=== PATIENT | male | born 1955 | race Caucasian/White ===

== ENCOUNTER 2017-08-08 03:25 | Inpatient (IN) | payer OTHER ==
[2017-08-08] VITALS (13 sets, daily range): BP systolic 138–207; BP diastolic 72–100; PULSE 58–95; RESP 16–19; TEMP 97.8–98.8; O2SAT 97–100
[~2017-08-08] VITALS: Ht 190.5 cm; Wt 106.5 kg
[~2017-08-08 03:25] MED LIST: AMLO10TA2 PO; ASPI81TA23 PO; ATOR80TA45 PO; CLOP75TA PO; ISOS30TA3 PO; LISI20TA3 PO; METO100T PO; MULTTAB67 PO; NITR1SUB3 SL
--- NOTE | 2017-08-08 04:21 | PD ---
HPI Chief Complaint: Chest Pain Time Seen by Provider: 03:37 Travel History International Travel<30 days: No Contact w/Intl Traveler<30days: No Traveled to known affect area: No History of Present Illness HPI Patient is a 61-year-old male with a catheterization 4 days ago, which showed major vessel disease which was too high up on the left main to be done. He is scheduled for cardiothoracic CABG. He reports the cardiothoracic surgeon is Dr. Magda Mosqueda. His keno writer / runner is Dr. LINDSAY . PCP Nanci... Laying in bed tonight prior to going to sleep he felt left chest pain lasted about 10 minutes and radiates towards his left arm area. Pain was dull achy. He did not take any nitroglycerin he takes isosorbide 30 mg and he has nitroglycerin sublingual but he did not take it he was told if pain returns and continues he should take the nitroglycerin he thought it did not last long enough to take the nitroglycerin it went away and then when his insisted he comes to the ER he stated started up again. He is pain-free currently in [facility] Past Medical History Cancer: No Cardiovascular Problems: Yes (UNSTABLE ANGINA, CAD, HTN) Chest Pain: No Coronary Artery Disease: Yes Diabetes: No Gastrointestinal Disorders: No Glaucoma: No Hepatitis: No Hiatal Hernia: No Hypertension: Yes Respiratory: Yes (SOB) Integumentary: No Thyroid Disease: No Past Surgical History Ear Surgery: Yes Other Surgery: Yes (DBL MAST) Social History Alcohol Use: No Tobacco Use: No Substance Use: No Allergies-Medications (Allergen,Severity, Reaction): Coded Allergies: Penicillins (Verified Allergy, Severe, 08/08/17) Sulfa (Sulfonamide Antibiotics) (Verified Allergy, Severe, 08/08/17) Reported Meds & Prescriptions Reported Meds & Active Scripts Active Reported Aspirin EC (Aspirin) 81 Mg Tabdr 81 Mg PO DAILY Clopidogrel (Clopidogrel Bisulfate) 75 Mg Tab 75 Mg PO DAILY Multiple Vitamin 1 Tab 1 Tab PO DAILY Nitroglycerin SL (Nitroglycerin) 0.4 Mg Subl 0.4 Mg SL DIRECTED PRN ONE TABLET UNDER THE TONGUE NEEDED FOR CHEST PAIN, MAY REPEAT EVERY FIVE MINUTES FOR A TOTAL OF 3 DOSES OR CALL 911 IF NO RELIEF Isosorbide Mononitrate ER (Isosorbide Mononitrate) 30 Mg [place] 30 Mg PO DAILY Atorvastatin (Atorvastatin Calcium) 80 Mg Tab 80 Mg PO HS Amlodipine (Amlodipine Besylate) 10 Mg Tab 10 Mg PO DAILY Metoprolol Tartrate 100 Mg Tab 100 Mg PO DAILY Lisinopril-Hctz 20-25 Mg Tab 1 Tab PO DAILY Review of Systems Except as stated in HPI: all other systems reviewed are Neg Cardiovascular: Positive: Chest Pain or Discomfort Physical Exam Narrative GENERAL: Nontoxic-appearing in no distress . He is not pale he is not diaphoretic SKIN: Focused skin assessment warm/dry. HEAD: Atraumatic. Normocephalic. EYES: Pupils equal and round. No scleral icterus. No injection or drainage. ENT: No nasal bleeding or discharge. Mucous membranes pink and moist. NECK: Trachea midline. No JVD. CARDIOVASCULAR: Regular rate and rhythm. No murmur appreciated. RESPIRATORY: No accessory muscle use. Clear to auscultation. Breath sounds equal bilaterally. GASTROINTESTINAL: Abdomen soft, non-tender, nondistended. Hepatic and splenic margins not palpable. MUSCULOSKELETAL: No obvious deformities. No clubbing. No cyanosis. No edema. NEUROLOGICAL: Awake and alert. No obvious cranial nerve deficits. Motor grossly within normal limits. Normal speech. PSYCHIATRIC: Appropriate mood and affect; insight and judgment normal. Data Data Last Documented VS Vital Signs Date Time Temp Pulse Resp B/P (MAP) Pulse Ox O2 Delivery O2 Flow Rate FiO2 08/08/17 04:15 Room Air 08/08/17 03:25 98.8 95 16 207/100 (135) 97 Orders Orders Complete Blood Count With Diff (08/08/17 03:55) Comprehensive Metabolic Panel (08/08/17 03:55) Ckmb (Isoenzyme) Profile (08/08/17 03:55) Troponin I (08/08/17 03:55) Magnesium (Mg) (08/08/17 03:55) Phosphorus (Po4) (08/08/17 03:55) Electrocardiogram (08/08/17 ) CKMB (08/08/17 04:16) CKMB% (08/08/17 04:16) Admit Order (Ed Use Only) (08/08/17 06:24) Nitroglycerin 2% Oint (Nitroglycerin 2% (08/08/17 06:30) Labs Laboratory Tests Test 08/08/17 04:16 White Blood Count 7.1 TH/MM3 Red Blood Count 4.36 MIL/MM3 Hemoglobin 13.3 GM/DL Hematocrit 36.5 % Mean Corpuscular Volume 83.8 FL Mean Corpuscular Hemoglobin 30.5 PG Mean Corpuscular Hemoglobin Concent 36.4 % Red Cell Distribution Width 13.4 % Platelet Count 176 TH/MM3 Mean Platelet Volume 9.9 FL Neutrophils (%) (Auto) 72.3 % Lymphocytes (%) (Auto) 17.7 % Monocytes (%) (Auto) 6.7 % Eosinophils (%) (Auto) 2.5 % Basophils (%) (Auto) 0.8 % Neutrophils # (Auto) 5.2 TH/MM3 Lymphocytes # (Auto) 1.3 TH/MM3 Monocytes # (Auto) 0.5 TH/MM3 Eosinophils # (Auto) 0.2 TH/MM3 Basophils # (Auto) 0.1 TH/MM3 CBC Comment AUTO DIFF Differential Comment AUTO DIFF CONFIRMED Platelet Estimate NORMAL Platelet Morphology Comment NORMAL Blood Urea Nitrogen 21 MG/DL Creatinine 1.58 MG/DL Random Glucose 208 MG/DL Total Protein 7.6 GM/DL Albumin 3.8 GM/DL Calcium Level 8.0 MG/DL Phosphorus Level 2.5 MG/DL Magnesium Level 2.2 MG/DL Alkaline Phosphatase 84 U/L Aspartate Amino Transf (AST/SGOT) 39 U/L Alanine Aminotransferase (ALT/SGPT) 52 U/L Total Bilirubin 0.4 MG/DL Sodium Level 140 MEQ/L Potassium Level 3.7 MEQ/L Chloride Level 105 MEQ/L Carbon Dioxide Level 25.4 MEQ/L Anion Gap 10 MEQ/L Estimat Glomerular Filtration Rate 45 ML/MIN Total Creatine Kinase 129 U/L Creatine Kinase MB 1.3 NG/ML Troponin I LESS THAN 0.02 NG/ML MDM Medical Decision Making Medical Screen Exam Complete: Yes Emergency Medical Condition: Yes Differential Diagnosis CAD, with ischemic CP vs GERD vs Anxiety vs vessel plaque rupture, Narrative Course Pt has normal EKG and Trop that is normal and has remained pain free in ED since arrival , I place nitro paste on patient and admit to Tele for close monitoring , I do not give ASA as pt has been taking 81 mg and is to have open heart CT surgery this week... Pt is stable for tele admit..Hospitailist group will contact CT surgery in AM Diagnosis Primary Impression: Chest pain Brandon Ruiz MD Aug 08, 2017 04:21
[2017-08-08 04:28] LABS: AUTOMATED NEUTROPHIL # 5.2 TH/MM3 (1.8-7.7); BASOPHIL # 0.1 TH/MM3 (0-0.2); BASOPHIL % 0.8 % (0.0-2.0); EOSINOPHIL # 0.2 TH/MM3 (0-0.4); EOSINOPHIL % 2.5 % (0.0-4.0); HEMATOCRIT 36.5 % (39.0-51.0); LYMPH % 17.7 % (9.0-44.0); LYMPHOCYTE # 1.3 TH/MM3 (1.0-4.8); MEAN CELL VOLUME 83.8 FL (80.0-100.0); MEAN CORPUSCULAR HEMOGLOBIN 30.5 PG (27.0-34.0); MONO % 6.7 % (0.0-8.0); NEUT % 72.3 % (16.0-70.0); PLATELET COUNT 176 TH/MM3 (150-450); RED BLOOD COUNT 4.36 MIL/MM3 (4.50-5.90); RED CELL DISTRIBUTION WIDTH 13.4 % (11.6-17.2); WHITE BLOOD COUNT 7.1 TH/MM3 (4.0-11.0)
[2017-08-08 04:56] LABS: HEMO FLAGS AUTO DIFF; MEAN CORPUSCULAR HGB CONC 36.4 % (32.0-36.0)
[2017-08-08 05:07] LABS: ALKALINE PHOSPHATASE 84 U/L (45-117); ALT (GPT) 52 U/L (12-78); ANION GAP 10 MEQ/L (5-15); AST (GOT) 39 U/L (15-37); BICARBONATE 25.4 MEQ/L (21.0-32.0); BLOOD UREA NITROGEN 21 MG/DL (7-18); CHLORIDE 105 MEQ/L (98-107); CREATINE KINASE 129 U/L (39-308); GLOMERULAR FILTRATION RATE 45 ML/MIN (>89); MAGNESIUM 2.2 MG/DL (1.5-2.5); SODIUM (NA) 140 MEQ/L (136-145); TOTAL BILIRUBIN ADULT 0.4 MG/DL (0.2-1.0)
[2017-08-08 05:08] LABS: POTASSIUM 3.7 MEQ/L (3.5-5.1)
[2017-08-08 05:21] LABS: CKMB 1.3 NG/ML (0.5-3.6)
[2017-08-08] MEDS ORDERED: MAGNESIUM HYDROXIDE SUSP 30 ML CUP PO PRN (06:30)
[2017-08-08] MEDS ORDERED: NITROGLYCERIN 2% OINT 1 GM PACKET TOPICAL ONE (06:30)
[2017-08-08] MEDS ORDERED: BISACODYL 10 MG SUPP RECTAL PRN (06:30)
[2017-08-08] MEDS ORDERED: ACETAMINOPHEN 325 MG TAB PO PRN (06:30)
[2017-08-08] MEDS ORDERED: LACTULOSE SYRUP 20 GM/30 ML CUP PO PRN (06:30)
[2017-08-08] MEDS ORDERED: ONDANSETRON HCL 4 MG/2 ML VIAL IVP PRN (06:30)
[2017-08-08] MEDS ORDERED: SODIUM CHLORIDE 0.9% FLUSH 10 ML FLUSH IV FLUSH PRN (06:30)
[2017-08-08] MEDS ORDERED: SENNOSIDES 8.6 MG TAB PO PRN (06:30)
[2017-08-08] MEDS ORDERED: ACETAMINOPHEN/HYDROcodone 325 MG/5 MG TAB PO PRN (06:30)
[2017-08-08 06:46] LABS: PLATELET ESTIMATE SMEAR NORMAL (NORMAL); PLATELET MORPHOLOGY NORMAL (NORMAL); SCAN/DIFF AUTO DIFF CONFIRMED
[2017-08-08] MEDS: HEPARIN SODIUM - IV 10,000 UNITS/10 ML VIAL IV PUSH ONE ×2 (08:45→11:18)
[2017-08-08] MEDS: SODIUM CHLOR 0.45% 500 ML INJ 500 ML IV SCH ×3 (08:45→22:05)
[2017-08-08] MEDS: SODIUM CHLORIDE 0.9% FLUSH 10 ML FLUSH IV FLUSH SCH ×2 (09:00→21:40)
[2017-08-08] MEDS ORDERED: LISINOPRIL 20 MG TAB PO SCH (09:00)
[2017-08-08] MEDS ORDERED: DOCUSATE SODIUM 50 MG/SENNA 8.6 MG TAB PO SCH (09:00)
[2017-08-08] MEDS ORDERED: HYDROCHLOROTHIAZIDE 25 MG TAB PO SCH (09:00)
[2017-08-08] MEDS ORDERED: NON-FORMULARY DRUG (Lisinopril-Hctz 1 TAB) PO SCH (09:00)
[2017-08-08 09:39] LABS: HEMATOCRIT 37.5 % (39.0-51.0); MEAN CELL VOLUME 84.6 FL (80.0-100.0); MEAN CORPUSCULAR HEMOGLOBIN 29.4 PG (27.0-34.0); MEAN CORPUSCULAR HGB CONC 34.8 % (32.0-36.0); PLATELET COUNT 151 TH/MM3 (150-450); RED BLOOD COUNT 4.43 MIL/MM3 (4.50-5.90); RED CELL DISTRIBUTION WIDTH 12.9 % (11.6-17.2); REVIEW FLAG FINAL; WHITE BLOOD COUNT 6.3 TH/MM3 (4.0-11.0)
[2017-08-08 09:49] LABS: APTT (PATIENT) 26.6 SEC (24.3-30.1); PROTHROMBIN TIME - PATIENT 10.8 SEC (9.8-11.6)
[2017-08-08] MEDS: METOPROLOL TARTRATE 100 MG TAB PO SCH (10:13)
[2017-08-08] MEDS: MULTIVITAMIN TAB PO SCH (10:15)
[2017-08-08] MEDS: ISOSORBIDE MONONITRATE 30 MG TAB PO SCH (10:15)
--- NOTE | 2017-08-08 10:36 | MB ---
cc: TYLER LINDSAY,EVONNE Melgar M.D. DATE OF CONSULTATION: 08/08/2017 REASON FOR CONSULTATION Chest pain. HISTORY Mr. Pastor is a 61-year-old white gentleman, a patient of Dr. Lindsay, with known severe three-vessel coronary artery disease. He had recently had an abnormal stress test and underwent cardiac catheterization on August 08 revealing severe three-vessel coronary disease and he was referred for bypass surgery revascularization to Dr. Diaz. Because of being on clopidogrel, the patient was going to be brought in this upcoming week on Thursday for elective surgery. [place] and began to get short of breath but had no chest pain. He said he could not sleep well last night and then began having some left upper chest discomfort that lasted about 10 minutes radiating to his left shoulder and arm. It was dull and achy. He did not take any sublingual nitroglycerin since he did not feel it was bad enough. He did come to the emergency room for evaluation. His initial cardiac enzymes were negative. He is currently asymptomatic lying in bed. His initial EKG was unremarkable. PAST HISTORY 1. Coronary artery disease. 2. Hypertension. Denies diabetes, myocardial infarction, stroke, thyroid, liver or kidney disease. PAST SURGICAL HISTORY 1. Ear surgery. 2. Cardiac catheterization recently as mentioned. SOCIAL HISTORY The patient denies tobacco, alcohol or illicit drug use. 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 ALLERGIES PENICILLIN AND SULFA DRUGS. MEDICATIONS 1. Aspirin 81 mg daily. 2. He was on clopidogrel up until the and that has been discontinued. 3. Sublingual nitroglycerin p.r.n. 4. Isosorbide mononitrate 30 mg daily. 5. Atorvastatin 80 mg h.s. 6. Amlodipine 10 mg daily. 7. Metoprolol tartrate 100 mg daily. 8. He also had been on Lisinopril/Hydrochlorothiazide, but that has also been held since his catheterization. FAMILY HISTORY Noncontributory. REVIEW OF SYSTEMS Denies lower extremity edema or claudication. Denies any bleeding or clotting disorders. Except for that mentioned in the HPI, his complete 12-point review of systems is otherwise negative. PHYSICAL EXAMINATION GENERAL: Middle-aged, overweight, white male lying in bed in no distress at this time. VITAL SIGNS: Blood pressure 140/77 mmHg, heart rate is 88 regular, respiratory rate 18, temperature 98.8, oxygen saturations 100% on room air. HEAD, EYES, EARS, NOSE AND THROAT: Head is normocephalic and atraumatic. Pupils equal, round and reactive to light. Sclerae anicteric. Extraocular movements intact. NECK: The neck is supple. There is no adenopathy. No jugular venous distension at 45 degrees. Carotid upstrokes normal. No bruits. Thyroid exam normal. LUNGS: Lungs are clear. HEART: PMI is not displaced. S1, S2 normal. No murmurs, gallops, clicks or rubs. ABDOMEN: Protuberant. Bowel sounds present, soft, nontender. No hepatosplenomegaly, masses or bruits. EXTREMITIES: No cyanosis, clubbing or edema. Pulses are +3 to 4 bilaterally throughout the lower extremities. There are no femoral bruits. EKG from 03:46 this morning shows sinus rhythm with occasional premature supraventricular complexes. LVH voltage. Abnormal EKG. Compared to previous EKG there is probably no change, heart rate is increased. LABORATORY DATA CBC normal. Electrolytes normal. BUN 21, creatinine 1.58, magnesium 2.2, AST 39. Troponin I less than 0.02 with a total CPK of 129, a CPK-MB of 1.3. IMAGING Chest x-ray: No acute cardiopulmonary disease. IMPRESSION 1. Severe three-vessel coronary atherosclerosis, awaiting coronary artery bypass graft revascularization. 2. Angina pectoris functional class III. 3. Rule out ACS. 4. Hypertensive heart disease, currently well-controlled. 5. Obesity. 6. Azotemia. RECOMMENDATIONS The patient has already been started on some intravenous fluids, and his home medications restarted. I will discontinue his lisinopril/hydrochlorothiazide for now due to his renal insufficiency and see if that improves. We will continue topical nitrates and begin heparin infusion. Dr. Diaz will be consulted. I will follow him with you over the weekend until Dr. Lindsay returns on Thursday. Thank you for allowing us to participate in the care of this patient. MD DELL García/MARGARITA /8:31 AM 10:15 AM
[2017-08-08] MEDS: HEPARIN-D5W 25,000 U/250 ML 250 ML IV PRN (10:45)
--- NOTE | 2017-08-08 12:32 | EKG ---
Date Performed: 08/08/2017 Time Performed: 03:46:39 PTAGE: 61 years EKG: Sinus rhythm WITH OCCASIONAL SUPRAVENTRICULAR PREMATURE COMPLEXES MODERATE VOLTAGE CRITERIA FOR LVH, CONSIDER NOR MAL VARIANT BORDERLINE ECG Since PREVIOUS TRACING , no significant change noted PREVIOUS TRACIN08/03/2017 11.16 DOCTOR: Ion Crain Interpretating Date/Time 08/08/2017 12:31:55
--- NOTE | 2017-08-08 12:58 | HHI.HP ---
[facility] Rain Joseph M.D. Admission Diagnosis chest pain know cad Diagnoses: (1) Multi-vessel coronary artery stenosis (2) Hypertension (3) Hyperlipidemia (4) Chest pain Chief Complaint: Chest pain Travel History International Travel<30 Days: No Contact w/Intl Traveler <30 Da: No Traveled to Known Affected Are: No History of Present Illness 61-year-old man recently diagnosed with severe multivessel CAD and one has been scheduled for CABG 08/12/17, came to the ED today for ongoing complaint of chest pain which started last night and rated over 7 in intensity with radiation to his left upper extremity and not relieved with aspirin as patient did not take any sublingual nitroglycerin. Patient has a recent diagnosis of three-vessel disease 08/03/17 on the finding of left heart catheterization with LAD 95% ostial lesion, RCA 80% and Circumflex 90%. He has been off Plavix. Patient denies any GI bleed, hemoptysis, hematuria. He has no shortness of breath. His initial cardiac enzyme were negative and EKG unremarkable. Review of Systems Except as stated in HPI: all other systems reviewed are Neg Past Family Social History Past Medical History Hypertension Hyperlipidemia CAD Severe multivessel disease Obesity Past Surgical History Double mastectomies for her large breasts as a teenager Multiple ear surgeries Reported Medications Aspirin EC (Aspirin) 81 Mg Tabdr 81 Mg PO DAILY Clopidogrel (Clopidogrel Bisulfate) 75 Mg Tab 75 Mg PO DAILY Multiple Vitamin 1 Tab 1 Tab PO DAILY Nitroglycerin SL (Nitroglycerin) 0.4 Mg Subl 0.4 Mg SL DIRECTED PRN ONE TABLET UNDER THE TONGUE NEEDED FOR CHEST PAIN, MAY REPEAT EVERY FIVE MINUTES FOR A TOTAL OF 3 DOSES OR CALL 911 IF NO RELIEF Isosorbide Mononitrate ER (Isosorbide Mononitrate) 30 Mg [place] 30 Mg PO DAILY Atorvastatin (Atorvastatin Calcium) 80 Mg Tab 80 Mg PO HS Amlodipine (Amlodipine Besylate) 10 Mg Tab 10 Mg PO DAILY Metoprolol Tartrate 100 Mg Tab 100 Mg PO DAILY Lisinopril-Hctz 20-25 Mg Tab 1 Tab PO DAILY Allergies: Coded Allergies: Penicillins (Verified Allergy, Severe, 08/08/17) Sulfa (Sulfonamide Antibiotics) (Verified Allergy, Severe, 08/08/17) Family History + for IA, CAD, hypertension Social History 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 SKIN: No rashes, ecchymoses or lesions. Cool and dry. HEAD: Atraumatic. Normocephalic. No temporal or scalp tenderness. EYES: Pupils equal round and reactive. Extraocular motions intact. No scleral icterus. No injection or drainage. ENT: Nose without bleeding, purulent drainage or septal hematoma. Throat without erythema, tonsillar hypertrophy or exudate. Uvula midline. Airway patent. NECK: Trachea midline. No JVD or lymphadenopathy. Supple, nontender, no meningeal signs. CARDIOVASCULAR: Regular rate and rhythm without murmurs, gallops, or rubs. RESPIRATORY: Clear to auscultation. Breath sounds equal bilaterally. No wheezes , rales, or rhonchi. GASTROINTESTINAL: Abdomen soft, non-tender, nondistended. No hepato-splenomegaly , or palpable masses. No guarding. MUSCULOSKELETAL: Extremities without clubbing, cyanosis, or edema. No joint tenderness, effusion, or edema noted. No calf tenderness. Negative Homans sign bilaterally. NEUROLOGICAL: Awake and alert. Cranial nerves II through XII intact. Motor and sensory grossly within normal limits. Five out of 5 muscle strength in all muscle groups. Normal speech. Laboratory Laboratory Tests Test 08/08/17 04:16 08/08/17 09:25 White Blood Count 7.1 6.3 Red Blood Count 4.36 4.43 Hemoglobin 13.3 13.0 Hematocrit 36.5 37.5 Mean Corpuscular Volume 83.8 84.6 Mean Corpuscular Hemoglobin 30.5 29.4 Mean Corpuscular Hemoglobin Concent 36.4 34.8 Red Cell Distribution Width 13.4 12.9 Platelet Count 176 151 Mean Platelet Volume 9.9 9.5 Neutrophils (%) (Auto) 72.3 Lymphocytes (%) (Auto) 17.7 Monocytes (%) (Auto) 6.7 Eosinophils (%) (Auto) 2.5 Basophils (%) (Auto) 0.8 Neutrophils # (Auto) 5.2 Lymphocytes # (Auto) 1.3 Monocytes # (Auto) 0.5 Eosinophils # (Auto) 0.2 Basophils # (Auto) 0.1 CBC Comment AUTO DIFF Differential Comment AUTO DIFF CONFIRMED Platelet Estimate NORMAL Platelet Morphology Comment NORMAL Blood Urea Nitrogen 21 Creatinine 1.58 Random Glucose 208 Total Protein 7.6 Albumin 3.8 Calcium Level 8.0 Phosphorus Level 2.5 Magnesium Level 2.2 Alkaline Phosphatase 84 Aspartate Amino Transf (AST/SGOT) 39 Alanine Aminotransferase (ALT/SGPT) 52 Total Bilirubin 0.4 Sodium Level 140 Potassium Level 3.7 Chloride Level 105 Carbon Dioxide Level 25.4 Anion Gap 10 Estimat Glomerular Filtration Rate 45 Total Creatine Kinase 129 Creatine Kinase MB 1.3 Troponin I LESS THAN 0.02 0.03 Prothrombin Time 10.8 Prothromb Time International Ratio 1.0 Activated Partial Thromboplast Time 26.6 Result Diagram: 08/08/1725 08/08/17 0416 Caprini VTE Risk Assessment Caprini VTE Risk Assessment: Mod/High Risk (score >= 2) Caprini Risk Assessment Model Point Value = 1 Point Value = 2 Point Value = 3 Point Value = 5 Age 41-60 Minor surgery BMI > 25 kg/m2 Swollen legs Varicose veins or History of unexplained or recurrent spontaneous Oral contraceptives or hormone replacement Sepsis (< 1 month) Serious lung disease, including pneumonia (< 1 month) Abnormal pulmonary function Acute myocardial infarction Congestive heart failure (< 1 month) History of inflammatory bowel disease Medical patient at bed rest Age 61-74 Arthroscopic surgery Major open surgery (> 45 min) Laparoscopic surgery (> 45 min) Malignancy Confined to bed (> 72 hours) Immobilizing plaster cast Central venous access Age >= 75 History of VTE Family history of VTE Factor V Leiden Prothrombin [id number] Lupus anticoagulant Anticardiolipin antibodies Elevated serum homocysteine Heparin-induced thrombocytopenia Other congenital or acquired thrombophilia Stroke (< 1 month) Elective arthroplasty Hip, pelvis, or leg fracture Acute spinal cord injury (< 1 month) Prophylaxis Regimen Total Risk Factor Score Risk Level Prophylaxis Regimen 0-1 Low Early ambulation 2 Moderate Order ONE of the following: *Sequential Compression Device (SCD) *Heparin 5000 units SQ BID 3-4 Higher Order ONE of the following medications: *Heparin 5000 units SQ TID *Enoxaparin/Lovenox 40 mg SQ daily (WT < 150 kg, CrCl > 30 mL/min) *Enoxaparin/Lovenox 30 mg SQ daily (WT < 150 kg, CrCl > 10-29 mL/min) *Enoxaparin/Lovenox 30 mg SQ BID (WT < 150 kg, CrCl > 30 mL/min) AND/OR *Sequential Compression Device (SCD) 5 or more Highest Order ONE of the following medications: *Heparin 5000 units SQ TID (Preferred with Epidurals) *Enoxaparin/Lovenox 40 mg SQ daily (WT < 150 kg, CrCl > 30 mL/min) *Enoxaparin/Lovenox 30 mg SQ daily (WT < 150 kg, CrCl > 10-29 mL/min) *Enoxaparin/Lovenox 30 mg SQ BID (WT < 150 kg, CrCl > 30 mL/min) AND *Sequential Compression Device (SCD) Assessment and Plan Problem List: (1) Multi-vessel coronary artery stenosis ICD Code: I25.10 - Atherosclerotic heart disease of [place] coronary artery without angina pectoris (2) Hyperlipidemia ICD Code: E78.5 - Hyperlipidemia, unspecified (3) Hypertension ICD Code: I10 - Essential (primary) hypertension Assessment and Plan 61-year-old man with Multivessel coronary artery disease Recent left heart catheterization with finding of LAD 95% ostial lesion, Circumflex 90% and RCA 80% Cardiothoracic surgery has been consulted for plan for CABG 08/12/17 Continue with heparin drip, nitroglycerin paste, Lopressor, statin Hold CONCHITA inhibitor, Lactinex Recent Non-ST elevation IA Appreciate input from cardiology Continue with above medical management Ischemic cardiomyopathy Currently on beta rebecca, Imdur Hypertension Continue Norvasc, Lopressor Hold CONCHITA inhibitor, hydrochlorothiazide Hyperlipidemia Continue statin DVT prophylaxis: Heparin drip Code Status Full code Discussed Condition With Patient and Physician Certification 2 Midnight Certification Type: Admission for Inpatient Services Order for Inpatient Services The services are ordered in accordance with Medicare regulations or non- Medicare payer requirements, as applicable. In the case of services not specified as inpatient-only, they are appropriately provided as inpatient services in accordance with the 2-midnight benchmark. Estimated LOS (days): 2 days is the estimated time the patient will need to remain in the hospital, assuming treatment plan goals are met and no additional complications. Post-Hospital Plan: Not yet determined Cliff Arellano MD Aug 08, 2017 12:58
[2017-08-08] MEDS ORDERED: HEPARIN SODIUM - IV 10,000 UNITS/10 ML VIAL IV PUSH PRN (14:45)
[2017-08-08 16:43] LABS: APTT (PATIENT) 34.1 SEC (24.3-30.1)
[2017-08-08] MEDS: HEPARIN SODIUM - IV 10,000 UNITS/10 ML VIAL IV PUSH PRN (17:14)
[2017-08-08] MEDS: ATORVASTATIN 80 MG TAB PO SCH (21:39)
[2017-08-09] VITALS (26 sets, daily range): BP systolic 123–154; BP diastolic 65–83; PULSE 54–82; RESP 16–19; TEMP 97.6–98.2; O2SAT 96–99
[2017-08-09 00:23] LABS: APTT (PATIENT) 35.5 SEC (24.3-30.1)
[2017-08-09 05:29] LABS: AUTOMATED NEUTROPHIL # 3.8 TH/MM3 (1.8-7.7); BASOPHIL % 0.5 % (0.0-2.0); EOSINOPHIL # 0.2 TH/MM3 (0-0.4); EOSINOPHIL % 2.6 % (0.0-4.0); HEMATOCRIT 34.8 % (39.0-51.0); HEMO FLAGS DIFF FINAL; LYMPH % 28.1 % (9.0-44.0); LYMPHOCYTE # 1.7 TH/MM3 (1.0-4.8); MEAN CELL VOLUME 84.6 FL (80.0-100.0); MEAN CORPUSCULAR HGB CONC 34.2 % (32.0-36.0); MONO % 6.9 % (0.0-8.0); NEUT % 61.9 % (16.0-70.0); PLATELET COUNT 152 TH/MM3 (150-450); RED BLOOD COUNT 4.11 MIL/MM3 (4.50-5.90); RED CELL DISTRIBUTION WIDTH 13.7 % (11.6-17.2); WHITE BLOOD COUNT 6.1 TH/MM3 (4.0-11.0)
[2017-08-09 06:53] LABS: ALKALINE PHOSPHATASE 69 U/L (45-117); ALT (GPT) 43 U/L (12-78); ANION GAP 7 MEQ/L (5-15); AST (GOT) 17 U/L (15-37); BICARBONATE 24.6 MEQ/L (21.0-32.0); BLOOD UREA NITROGEN 16 MG/DL (7-18); CHLORIDE 109 MEQ/L (98-107); GLOMERULAR FILTRATION RATE 57 ML/MIN (>89); POTASSIUM 3.7 MEQ/L (3.5-5.1); SODIUM (NA) 141 MEQ/L (136-145); TOTAL BILIRUBIN ADULT 0.4 MG/DL (0.2-1.0)
[2017-08-09] MEDS: HEPARIN SODIUM - IV 10,000 UNITS/10 ML VIAL IV PUSH PRN (06:53)
--- NOTE | 2017-08-09 07:00 | PD.CARD.PN ---
Subjective Subjective Remarks Doing well. No recurrent chest pain overnight. No complaints. Objective Medications Current Medications Medications (Trade) Dose Ordered Sig/Cuauhtemoc Route Start Time Stop Time Status Last Admin (NS Flush) 2 ml UNSCH PRN IV FLUSH 08/08/17 06:30 (NS Flush) 2 ml BID IV FLUSH 08/08/17 09:00 08/08/17 21:40 (Zofran Inj) 4 mg Q6H PRN IVP 08/08/17 06:30 (Tylenol) 650 mg Q6H PRN PO 08/08/17 06:30 ([place] 5-325 Mg) 1 tab Q4H PRN PO 08/08/17 06:30 (Morphine Inj) 2 mg Q3H PRN IV PUSH 08/08/17 06:30 (Milk Of Magnesia Liq) 30 ml Q12H PRN PO 08/08/17 06:30 (Dulcolax Supp) 10 mg DAILY PRN RECTAL 08/08/17 06:30 (Norvasc) 10 mg DAILY PO 08/08/17 09:00 08/08/17 10:14 (Lipitor) 80 mg HS PO 08/08/17 21:00 08/08/17 21:39 (Imdur) 30 mg DAILY PO 08/08/17 09:00 08/08/17 10:15 (Lopressor) 100 mg DAILY PO 08/08/17 09:00 08/08/17 10:13 (Theragran) 1 tab DAILY PO 08/08/17 09:00 08/08/17 10:15 Sodium Chloride 500 ml @ 75 mls/hr Q6H40M IV 08/08/17 08:45 08/08/17 22:05 (Heparin Inj) 5,000 units UNSCH PRN IV PUSH 08/08/17 14:45 (Heparin Inj) 2,500 units UNSCH PRN IV PUSH 08/08/17 14:45 08/08/17 17:14 Heparin Sodium/ Dextrose 250 ml @ 10 mls/hr TITRATE PRN IV 08/08/17 08:45 08/08/17 10:45 Vital Signs / I&O Vital Signs Date Time Temp Pulse Resp B/P (MAP) Pulse Ox O2 Delivery O2 Flow Rate FiO2 08/09/17 05:00 61 08/09/17 04:44 97.9 77 19 145/73 (97) 98 08/09/17 04:00 64 08/09/17 03:00 63 08/09/17 02:00 63 08/09/17 00:00 98.1 65 19 146/73 (97) 98 08/08/17 20:00 97.8 65 19 144/74 (97) 99 08/08/17 18:00 60 08/08/17 17:00 64 08/08/17 16:00 62 08/08/17 15:36 98.0 61 18 138/72 (94) 99 08/08/17 15:00 61 08/08/17 14:00 59 08/08/17 13:00 62 08/08/17 12:00 58 08/08/17 12:00 98.2 64 18 147/78 (101) 99 08/08/17 11:00 152/74 (100) 08/08/17 10:05 97.8 62 18 173/78 (109) 99 08/08/17 08:12 88 18 140/77 (98) 100 Room Air I/O 08/08/17 08/08/17 08/08/17 08/09/17 08/09/17 08/09/17 07:00 15:00 23:00 07:00 15:00 23:00 Intake Total 1680 ml 670 ml Output Total 600 ml Balance 1080 ml 670 ml Intake Oral 750 ml 240 ml IV Total 930 ml 430 ml Output Urine Total 600 ml # Voids 1 # Bowel Movements 0 Physical Exam VSS, afebrile No JVD Lungs: CTA Heart: RRR, no murmur. Ext: No C/C/E Neuro; Non-focal Laboratory Laboratory Tests Test 08/08/17 09:25 08/08/17 16:06 08/08/17 23:36 08/09/17 04:40 White Blood Count 6.3 TH/MM3 6.1 TH/MM3 Red Blood Count 4.43 MIL/MM3 4.11 MIL/MM3 Hemoglobin 13.0 GM/DL 11.9 GM/DL Hematocrit 37.5 % 34.8 % Mean Corpuscular Volume 84.6 FL 84.6 FL Mean Corpuscular Hemoglobin 29.4 PG 29.0 PG Mean Corpuscular Hemoglobin Concent 34.8 % 34.2 % Red Cell Distribution Width 12.9 % 13.7 % Platelet Count 151 TH/MM3 152 TH/MM3 Mean Platelet Volume 9.5 FL 10.0 FL Prothrombin Time 10.8 SEC Prothromb Time International Ratio 1.0 RATIO Activated Partial Thromboplast Time 26.6 SEC 34.1 SEC 35.5 SEC Troponin I 0.03 NG/ML 0.08 NG/ML Neutrophils (%) (Auto) 61.9 % Lymphocytes (%) (Auto) 28.1 % Monocytes (%) (Auto) 6.9 % Eosinophils (%) (Auto) 2.6 % Basophils (%) (Auto) 0.5 % Neutrophils # (Auto) 3.8 TH/MM3 Lymphocytes # (Auto) 1.7 TH/MM3 Monocytes # (Auto) 0.4 TH/MM3 Eosinophils # (Auto) 0.2 TH/MM3 Basophils # (Auto) 0.0 TH/MM3 CBC Comment DIFF FINAL Differential Comment Assessment and Plan Problem List: (1) ACS (acute coronary syndrome) ICD Codes: I24.9 - Acute ischemic heart disease, unspecified Plan: Mild TnI elevation seen. (2) ASHD (arteriosclerotic heart disease) ICD Codes: I25.10 - Atherosclerotic heart disease of [place] coronary artery without angina pectoris (3) Hypertensive heart disease ICD Codes: I11.9 - Hypertensive heart disease without heart failure (4) Multi-vessel coronary artery stenosis ICD Codes: I25.10 - Atherosclerotic heart disease of [place] coronary artery without angina pectoris Assessment and Plan CV stable. Continue observation on telemetry. Awaiting CABG. IV heparin. On BB, ASA, statin, nitrates. CTS consultation. Code Status Full Discussed Condition With Patient and medical staff credentialing coordinator. Daniel Ludwig MD Aug 09, 2017 07:00
[2017-08-09] MEDS: HEPARIN-D5W 25,000 U/250 ML 250 ML IV PRN (07:56)
--- NOTE | 2017-08-09 08:45 | HHI.PR ---
Subjective Remarks Follow-up multivessel coronary artery severe disease 08/09/17-patient seen and examined, denies any chest pain. Currently no compression or shortness of breath. No acute event overnight. Taking by mouth without any competition nausea and vomiting. Objective Vitals Vital Signs Date Time Temp Pulse Resp B/P (MAP) Pulse Ox O2 Delivery O2 Flow Rate FiO2 08/09/17 08:01 97.8 60 18 143/83 (103) 99 08/09/17 06:00 82 08/09/17 05:00 61 08/09/17 04:44 97.9 77 19 145/73 (97) 98 08/09/17 04:00 64 08/09/17 03:00 63 08/09/17 02:00 63 08/09/17 00:00 98.1 65 19 146/73 (97) 98 08/08/17 20:00 97.8 65 19 144/74 (97) 99 08/08/17 18:00 60 08/08/17 17:00 64 08/08/17 16:00 62 08/08/17 15:36 98.0 61 18 138/72 (94) 99 08/08/17 15:00 61 08/08/17 14:00 59 08/08/17 13:00 62 08/08/17 12:00 58 08/08/17 12:00 98.2 64 18 147/78 (101) 99 08/08/17 11:00 152/74 (100) 08/08/17 10:05 97.8 62 18 173/78 (109) 99 I/O 08/08/17 08/08/17 08/08/17 08/09/17 08/09/17 08/09/17 06:59 14:59 22:59 06:59 14:59 22:59 Intake Total 1594 ml 843 ml Output Total 600 ml Balance 994 ml 843 ml Intake Oral 750 ml 240 ml IV Total 844 ml 603 ml Output Urine Total 600 ml # Voids 1 # Bowel Movements 0 Result Diagram: 08/09/1743908/09/17439 Objective Remarks GENERAL: NAD SKIN: Warm and dry. HEAD: Normocephalic. EYES: No scleral icterus. No injection or drainage. NECK: Supple, trachea midline. No JVD or lymphadenopathy. CARDIOVASCULAR: Regular rate and rhythm without murmurs, gallops, or rubs. RESPIRATORY: Breath sounds equal bilaterally. No accessory muscle use. GASTROINTESTINAL: Abdomen soft, non-tender, nondistended. MUSCULOSKELETAL: No cyanosis, or edema. BACK: Nontender without obvious deformity. No CVA tenderness. A/P Problem List: (1) Multi-vessel coronary artery stenosis ICD Code: I25.10 - Atherosclerotic heart disease of [place] coronary artery without angina pectoris (2) Hyperlipidemia ICD Code: E78.5 - Hyperlipidemia, unspecified (3) Hypertension ICD Code: I10 - Essential (primary) hypertension Assessment and Plan 61-year-old man with Multivessel coronary artery disease Recent left heart catheterization with finding of LAD 95% ostial lesion, Circumflex 90% and RCA 80% Cardiothoracic surgery has been consulted for plan for CABG 08/12/17 Appreciate input from cardiology Continue with heparin drip, nitroglycerin paste, Lopressor, statin Hold CONCHITA inhibitor, Lactinex Recent Non-ST elevation [place] Appreciate input from cardiology Continue with above medical management Ischemic cardiomyopathy Currently on beta rebecca, Imdur Hypertension Continue Norvasc, Lopressor Hold CONCHITA inhibitor, hydrochlorothiazide Hyperlipidemia Continue statin DVT prophylaxis: Heparin drip Cliff Arellano MD Aug 09, 2017 08:44
[2017-08-09] MEDS: SODIUM CHLORIDE 0.9% FLUSH 10 ML FLUSH IV FLUSH SCH ×2 (09:00→20:25)
[2017-08-09] MEDS ORDERED: ASPIRIN 325 MG TAB PO SCH (09:00)
[2017-08-09] MEDS: MULTIVITAMIN TAB PO SCH (09:48)
[2017-08-09] MEDS: ISOSORBIDE MONONITRATE 30 MG TAB PO SCH (09:48)
[2017-08-09] MEDS: METOPROLOL TARTRATE 100 MG TAB PO SCH (09:48)
--- NOTE | 2017-08-09 11:27 | PD.CAR.PN ---
CVT Progress Note Subjective/Hospital Course: Patient scheduled for CABG this week with Dr. Diaz. Presented to the ED with rest chest pain and had a very slight troponin elevation. He is currently comfortable and pain free on heparin IV. Objective: Vital Signs Date Time Temp Pulse Resp B/P (MAP) Pulse Ox O2 Delivery O2 Flow Rate FiO2 08/09/17 10:00 68 08/09/17 09:00 62 08/09/17 08:01 97.8 60 18 143/83 (103) 99 08/09/17 08:00 60 08/09/17 06:00 82 08/09/17 05:00 61 08/09/17 04:44 97.9 77 19 145/73 (97) 98 08/09/17 04:00 64 08/09/17 03:00 63 08/09/17 02:00 63 08/09/17 00:00 98.1 65 19 146/73 (97) 98 08/08/17 20:00 97.8 65 19 144/74 (97) 99 08/08/17 18:00 60 08/08/17 17:00 64 08/08/17 16:00 62 08/08/17 15:36 98.0 61 18 138/72 (94) 99 08/08/17 15:00 61 08/08/17 14:00 59 08/08/17 13:00 62 08/08/17 12:00 58 08/08/17 12:00 98.2 64 18 147/78 (101) 99 Labs: Laboratory Tests Test 08/08/17 23:36 08/09/17 04:40 Activated Partial Thromboplast Time 35.5 SEC (24.3-30.1) White Blood Count 6.1 TH/MM3 (4.0-11.0) Red Blood Count 4.11 MIL/MM3 (4.50-5.90) Hemoglobin 11.9 GM/DL (13.0-17.0) Hematocrit 34.8 % (39.0-51.0) Mean Corpuscular Volume 84.6 FL (80.0-100.0) Mean Corpuscular Hemoglobin 29.0 PG (27.0-34.0) Mean Corpuscular Hemoglobin Concent 34.2 % (32.0-36.0) Red Cell Distribution Width 13.7 % (11.6-17.2) Platelet Count 152 TH/MM3 (150-450) Mean Platelet Volume 10.0 FL (7.0-11.0) Neutrophils (%) (Auto) 61.9 % (16.0-70.0) Lymphocytes (%) (Auto) 28.1 % (9.0-44.0) Monocytes (%) (Auto) 6.9 % (0.0-8.0) Eosinophils (%) (Auto) 2.6 % (0.0-4.0) Basophils (%) (Auto) 0.5 % (0.0-2.0) Neutrophils # (Auto) 3.8 TH/MM3 (1.8-7.7) Lymphocytes # (Auto) 1.7 TH/MM3 (1.0-4.8) Monocytes # (Auto) 0.4 TH/MM3 (0-0.9) Eosinophils # (Auto) 0.2 TH/MM3 (0-0.4) Basophils # (Auto) 0.0 TH/MM3 (0-0.2) CBC Comment DIFF FINAL Differential Comment Blood Urea Nitrogen 16 MG/DL (7-18) Creatinine 1.29 MG/DL (0.60-1.30) Random Glucose 100 MG/DL (74-106) Total Protein 6.6 GM/DL (6.4-8.2) Albumin 3.3 GM/DL (3.4-5.0) Calcium Level 8.2 MG/DL (8.5-10.1) Alkaline Phosphatase 69 U/L (45-117) Aspartate Amino Transf (AST/SGOT) 17 U/L (15-37) Alanine Aminotransferase (ALT/SGPT) 43 U/L (12-78) Total Bilirubin 0.4 MG/DL (0.2-1.0) Sodium Level 141 MEQ/L (136-145) Potassium Level 3.7 MEQ/L (3.5-5.1) Chloride Level 109 MEQ/L (98-107) Carbon Dioxide Level 24.6 MEQ/L (21.0-32.0) Anion Gap 7 MEQ/L (5-15) Estimat Glomerular Filtration Rate 57 ML/MIN (>89) Result Diagram: 08/09/1743908/09/17439 Cardiovascular: RRR Telemetry: NSR Pulmonary: CTA GI/: NABS Plan: Emergent CABG for refractory chest pain - currently he is pain-free ECHO requested Dr. Diaz will return tomorrow to assume care. (1) ACS (acute coronary syndrome) Plan: Mild TnI elevation seen. (2) ASHD (arteriosclerotic heart disease) (3) Hypertensive heart disease (4) Multi-vessel coronary artery stenosis Marycruz Cross MD Aug 09, 2017 11:27
[2017-08-09 18:07] LABS: APTT (PATIENT) 33.6 SEC (24.3-30.1)
[2017-08-09] MEDS: ATORVASTATIN 80 MG TAB PO SCH (20:25)
[2017-08-09 23:23] LABS: APTT (PATIENT) 36.2 SEC (24.3-30.1)
[2017-08-10] VITALS (27 sets, daily range): BP systolic 132–174; BP diastolic 77–88; PULSE 52–70; RESP 16–18; TEMP 97.6–98.5; O2SAT 97–98
[2017-08-10] MEDS: HEPARIN SODIUM - IV 10,000 UNITS/10 ML VIAL IV PUSH PRN ×3 (00:34→23:18)
[2017-08-10] MEDS: HEPARIN-D5W 25,000 U/250 ML 250 ML IV PRN ×2 (00:51→18:06)
[2017-08-10] MEDS: SODIUM CHLOR 0.45% 500 ML INJ 500 ML IV SCH (02:28)
[2017-08-10] MEDS: SODIUM CHLOR 0.45% 1000 ML INJ 1,000 ML IV SCH ×2 (02:28→15:49)
[2017-08-10] MEDS: MORPHINE SULFATE 4 MG/ML INJ IV PUSH PRN (02:58)
[2017-08-10] MEDS: NITROGLYCERIN 0.4 MG SL 25 TABS/BTL SL PRN ×2 (03:45→03:50)
[2017-08-10 05:06] LABS: APTT (PATIENT) 46.6 SEC (24.3-30.1)
[2017-08-10] MEDS: METOPROLOL TARTRATE 100 MG TAB PO SCH (09:22)
[2017-08-10] MEDS: ISOSORBIDE MONONITRATE 30 MG TAB PO SCH (09:22)
[2017-08-10] MEDS: MULTIVITAMIN TAB PO SCH (09:22)
[2017-08-10] MEDS: SODIUM CHLORIDE 0.9% FLUSH 10 ML FLUSH IV FLUSH SCH ×2 (09:24→21:00)
--- NOTE | 2017-08-10 09:33 | HHI.PR ---
Subjective Remarks Follow-up multivessel coronary artery severe disease 08/09/17-patient seen and examined, denies any chest pain. Currently no compression or shortness of breath. No acute event overnight. Taking by mouth without any competition nausea and vomiting. 08/10/17-patient seen and examined, reports episode of chest pain overnight and early this morning. No shortness of breath. Objective Vitals Vital Signs Date Time Temp Pulse Resp B/P (MAP) Pulse Ox O2 Delivery O2 Flow Rate FiO2 08/10/17 07:47 68 08/10/17 07:47 97.7 68 18 174/88 (116) 97 08/10/17 06:10 61 08/10/17 05:12 59 08/10/17 04:37 61 08/10/17 03:30 98.1 66 16 157/83 (107) 97 08/10/17 03:30 66 08/10/17 02:03 64 08/10/17 01:00 60 08/10/17 00:00 60 08/09/17 23:47 98.2 62 18 154/80 (104) 99 08/09/17 23:03 62 08/09/17 22:00 59 08/09/17 21:00 57 08/09/17 20:03 98.2 69 18 128/68 (88) 99 08/09/17 20:00 60 08/09/17 19:00 69 08/09/17 18:00 57 08/09/17 17:00 67 08/09/17 16:00 59 08/09/17 15:00 56 08/09/17 15:00 98.1 54 18 123/65 (84) 96 08/09/17 14:00 62 08/09/17 13:00 57 08/09/17 12:00 59 08/09/17 11:00 97.6 60 16 141/83 (102) 98 08/09/17 11:00 59 08/09/17 10:00 68 I/O 08/09/17 08/09/17 08/09/17 08/10/17 08/10/17 08/10/17 07:00 15:00 23:00 07:00 15:00 23:00 Intake Total 757 ml 684 ml 2139 ml 808 ml Output Total 500 ml 400 ml Balance 757 ml 684 ml 1639 ml 408 ml Intake Oral 240 ml 480 ml 720 ml IV Total 517 ml 684 ml 1659 ml 88 ml Output Urine Total 500 ml 400 ml # Voids 1 3 # Bowel Movements 1 Result Diagram: 08/09/1743908/09/17439 Objective Remarks GENERAL: NAD SKIN: Warm and dry. HEAD: Normocephalic. EYES: No scleral icterus. No injection or drainage. NECK: Supple, trachea midline. No JVD or lymphadenopathy. CARDIOVASCULAR: Regular rate and rhythm without murmurs, gallops, or rubs. RESPIRATORY: Breath sounds equal bilaterally. No accessory muscle use. GASTROINTESTINAL: Abdomen soft, non-tender, nondistended. MUSCULOSKELETAL: No cyanosis, or edema. BACK: Nontender without obvious deformity. No CVA tenderness. A/P Problem List: (1) Multi-vessel coronary artery stenosis ICD Code: I25.10 - Atherosclerotic heart disease of [place] coronary artery without angina pectoris (2) Hyperlipidemia ICD Code: E78.5 - Hyperlipidemia, unspecified (3) Hypertension ICD Code: I10 - Essential (primary) hypertension Assessment and Plan 61-year-old man with Multivessel coronary artery disease Recent left heart catheterization with finding of LAD 95% ostial lesion, Circumflex 90% and RCA 80% Cardiothoracic surgery has been consulted for plan for CABG Thursday Appreciate input from cardiology Continue with heparin drip, nitroglycerin SL, Lopressor, statin Hold CONCHITA inhibitor, Lactinex Recent Non-ST elevation [place] Appreciate input from cardiology Continue with above medical management Ischemic cardiomyopathy Currently on beta rebecca, Imdur Hypertension Continue Norvasc, Lopressor Hold CONCHITA inhibitor, hydrochlorothiazide Hyperlipidemia Continue statin DVT prophylaxis: Heparin drip Cliff Arellano MD Aug 10, 2017 09:33
[2017-08-10] MEDS ORDERED: ASPIRIN 81 MG CHEW TAB PO SCH (09:45)
[2017-08-10] MEDS: ASPIRIN EC 81 MG TABEC PO SCH (09:45)
[2017-08-10] MEDS: NITROGLYCERIN 2% OINT 1 GM PACKET TOPICAL SCH ×3 (11:21→23:16)
[2017-08-10 11:53] LABS: P2Y12 REACTION UNITS (PRU) 239 PRU (194-418)
[2017-08-10 13:58] LABS: APTT (PATIENT) 38.7 SEC (24.3-30.1)
--- NOTE | 2017-08-10 14:18 | PD.CAR.PN ---
CVT Progress Note Subjective/Hospital Course: 61/ male scheduled for CABG this week with Dr. Diaz on 08/12 2/2 being on plavix . Presented to the ED with rest chest pain and had a very slight troponin elevation. He is currently comfortable and pain free on heparin IV. he is patient of Dr. Virk, with known severe three-vessel coronary artery disease. He had recently had an abnormal stress test and underwent cardiac catheterization on August 08 revealing severe three-vessel coronary disease and he was referred for bypass surgery revascularization. [place] and began to get short of breath but had no chest pain. He said he could not sleep well the night before he came in , and then began having some left upper chest discomfort that lasted about 10 minutes radiating to his left shoulder and arm. It was dull and achy. He did not take any sublingual nitroglycerin since he did not feel it was bad enough. He did come to the emergency room for evaluation. His initial cardiac enzymes were negative then went to 0.08 . He is currently asymptomatic lying in bed. His initial EKG was unremarkable. PAST HISTORY 1. Coronary artery disease. 2. Hypertension. 08/10 pt now on nitro paste , ASA and heparin gtt he has now been scheduled for surgery in am currently pain free Objective: GENERAL: SKIN: Warm and dry. HEAD: Normocephalic. EYES: No scleral icterus. No injection or drainage. NECK: Supple, trachea midline. No JVD or lymphadenopathy. CARDIOVASCULAR: Regular rate and rhythm without murmurs, gallops, or rubs. RESPIRATORY: Breath sounds equal bilaterally. No accessory muscle use. GASTROINTESTINAL: Abdomen soft, non-tender, nondistended. MUSCULOSKELETAL: No cyanosis, or edema. BACK: Nontender without obvious deformity. No CVA tenderness. Vital Signs Date Time Temp Pulse Resp B/P (MAP) Pulse Ox O2 Delivery O2 Flow Rate FiO2 08/10/17 13:00 56 08/10/17 12:00 58 08/10/17 11:30 98.5 60 18 152/85 (107) 97 08/10/17 11:30 68 08/10/17 11:00 60 08/10/17 10:00 68 08/10/17 09:00 66 08/10/17 07:47 68 08/10/17 07:47 97.7 68 18 174/88 (116) 97 08/10/17 06:10 61 08/10/17 05:12 59 08/10/17 04:37 61 08/10/17 03:30 98.1 66 16 157/83 (107) 97 08/10/17 03:30 66 08/10/17 02:03 64 08/10/17 01:00 60 08/10/17 00:00 60 08/09/17 23:47 98.2 62 18 154/80 (104) 99 08/09/17 23:03 62 08/09/17 22:00 59 08/09/17 21:00 57 08/09/17 20:03 98.2 69 18 128/68 (88) 99 08/09/17 20:00 60 08/09/17 19:00 69 08/09/17 18:00 57 08/09/17 17:00 67 08/09/17 16:00 59 08/09/17 15:00 56 08/09/17 15:00 98.1 54 18 123/65 (84) 96 Labs: Laboratory Tests Test 08/10/17 04:44 08/10/17 11:11 08/10/17 13:30 Activated Partial Thromboplast Time 46.6 SEC (24.3-30.1) 38.7 SEC (24.3-30.1) Platelet Function P2Y12 React Units 239 PRU (194-418) Result Diagram: 08/09/1743908/09/17439 Telemetry: NSR (1) ACS (acute coronary syndrome) Plan: Mild TnI elevation seen. on ASA, heparin gtt , BB and statin for surgery in am (2) ASHD (arteriosclerotic heart disease) (3) Hypertensive heart disease (4) Multi-vessel coronary artery stenosis Liset Byrnes Aug 10, 2017 14:18
[2017-08-10] MEDS ORDERED: VANCOMYCIN INJ 1,750 MG in SODIUM CHLORID 0.9% 500 ML INJ 500 ML IV SCH (14:30)
[2017-08-10] MEDS ORDERED: METOPROLOL TARTRATE 25 MG TAB PO SCH (14:30)
[2017-08-10] MEDS ORDERED: CHLORHEXIDINE GLUCONATE 4% SOLN 120 ML BTL TOPICAL SCH (14:30)
[2017-08-10] MEDS ORDERED: PAPAVERINE INJ 60 MG, NITROGLYCERIN INJ 100 MCG, DILTIAZEM INJ 100 MG in SODIUM CHLORID... IRRIGATION SCH (14:30)
[2017-08-10] MEDS ORDERED: INSULIN REGULAR (IV INFUSION) 100 UNITS in SODIUM CHLORIDE 0.9% INJ 99 ML IV PRN (14:30)
[2017-08-10] MEDS ORDERED: VANCOMYCIN INJ 1,000 MG in SODIUM CHLORIDE 0.9% IRR BTL 1,000 ML IRRIGATION SCH (14:30)
[2017-08-10] MEDS ORDERED: SODIUM CHLORIDE 0.9% FLUSH 10 ML FLUSH IV FLUSH PRN (14:30)
[2017-08-10] MEDS ORDERED: DEXTROSE 50% IN WATER 50 ML VIAL(D50) IV PUSH PRN (14:30)
--- NOTE | 2017-08-10 14:59 | PD.CARD.PN ---
Subjective Subjective Remarks Angina yesterday improved with NTG, now pain free, no SOB Objective Medications Current Medications Medications (Trade) Dose Ordered Sig/Cuauhtemoc Route Start Time Stop Time Status Last Admin (Zofran Inj) 4 mg Q6H PRN IVP 08/08/17 06:30 (Tylenol) 650 mg Q6H PRN PO 08/08/17 06:30 ([place] 5-325 Mg) 1 tab Q4H PRN PO 08/08/17 06:30 (Morphine Inj) 2 mg Q3H PRN IV PUSH 08/08/17 06:30 08/10/17 02:58 (Milk Of Magnesia Liq) 30 ml Q12H PRN PO 08/08/17 06:30 (Dulcolax Supp) 10 mg DAILY PRN RECTAL 08/08/17 06:30 (Norvasc) 10 mg DAILY PO 08/08/17 09:00 08/10/17 09:22 (Lipitor) 80 mg HS PO 08/08/17 21:00 08/09/17 20:25 (Imdur) 30 mg DAILY PO 08/08/17 09:00 08/10/17 09:22 (Lopressor) 100 mg DAILY PO 08/08/17 09:00 08/10/17 09:22 (Theragran) 1 tab DAILY PO 08/08/17 09:00 08/10/17 09:22 (Heparin Inj) 5,000 units UNSCH PRN IV PUSH 08/08/17 14:45 (Heparin Inj) 2,500 units UNSCH PRN IV PUSH 08/08/17 14:45 08/10/17 00:34 Heparin Sodium/ Dextrose 250 ml @ 10 mls/hr TITRATE PRN IV 08/08/17 08:45 08/10/17 00:51 (Nitrostat Sl) 0.4 mg Q5M PRN SL 08/10/17 03:45 08/10/17 03:50 Sodium Chloride 1,000 ml @ 75 mls/hr [id number] IV 08/10/17 05:30 08/10/17 02:28 (Ecotrin Ec) 81 mg DAILY PO 08/10/17 09:45 08/10/17 09:45 (Nitroglycerin 2% Oint) 1 inch Q6HR TOPICAL 08/10/17 12:00 08/10/17 11:21 (NS Flush) 2 ml BID IV FLUSH 08/10/17 21:00 (NS Flush) 2 ml UNSCH PRN IV FLUSH 08/10/17 14:30 Papaverine HCl 60 mg/Nitroglycerin 100 mcg/Diltiazem HCl 100 mg/Sodium Chloride 100 ml @ 0 mls/hr ORTHOPEDIC TECH IRRIGATION 08/10/17 14:30 08/17/17 14:29 Vancomycin HCl 1000 mg/Sodium Chloride 1,000 ml @ 0 mls/hr ORTHOPEDIC TECH IRRIGATION 08/10/17 14:30 08/17/17 14:29 Vancomycin HCl 1750 mg/Sodium Chloride 517.5 ml @ 258.75 mls/ hr ORTHOPEDIC TECH IV 08/10/17 14:30 08/17/17 14:29 (Lopressor) 12.5 mg ORTHOPEDIC TECH PO 08/10/17 14:30 08/17/17 14:29 (Hibiclens 4% Top Soln) 1 applic ORTHOPEDIC TECH TOPICAL 08/10/17 14:30 08/17/17 14:29 Insulin Human Regular 100 units/ Sodium Chloride 100 ml @ 3 mls/hr TITRATE PRN IV 08/10/17 14:30 08/17/17 14:29 (D50w (Vial) Inj) 50 ml UNSCH PRN IV PUSH 08/10/17 14:30 Vital Signs / I&O Vital Signs Date Time Temp Pulse Resp B/P (MAP) Pulse Ox O2 Delivery O2 Flow Rate FiO2 08/10/17 13:00 56 08/10/17 12:00 58 08/10/17 11:30 98.5 60 18 152/85 (107) 97 08/10/17 11:30 68 08/10/17 11:00 60 08/10/17 10:00 68 08/10/17 09:00 66 08/10/17 07:47 68 08/10/17 07:47 97.7 68 18 174/88 (116) 97 08/10/17 06:10 61 08/10/17 05:12 59 08/10/17 04:37 61 08/10/17 03:30 98.1 66 16 157/83 (107) 97 08/10/17 03:30 66 08/10/17 02:03 64 08/10/17 01:00 60 08/10/17 00:00 60 08/09/17 23:47 98.2 62 18 154/80 (104) 99 08/09/17 23:03 62 08/09/17 22:00 59 08/09/17 21:00 57 08/09/17 20:03 98.2 69 18 128/68 (88) 99 08/09/17 20:00 60 08/09/17 19:00 69 08/09/17 18:00 57 08/09/17 17:00 67 08/09/17 16:00 59 08/09/17 15:00 56 08/09/17 15:00 98.1 54 18 123/65 (84) 96 I/O 08/09/17 08/09/17 08/09/17 08/10/17 08/10/17 08/10/17 07:00 15:00 23:00 07:00 15:00 23:00 Intake Total 757 ml 684 ml 2139 ml 808 ml Output Total 500 ml 400 ml Balance 757 ml 684 ml 1639 ml 408 ml Intake Oral 240 ml 480 ml 720 ml IV Total 517 ml 684 ml 1659 ml 88 ml Output Urine Total 500 ml 400 ml # Voids 1 3 # Bowel Movements 1 Physical Exam GENERAL: In NAD SKIN: Warm and dry. HEAD: Normocephalic. EYES: No scleral icterus. No injection or drainage. NECK: Supple, trachea midline. No JVD or lymphadenopathy. CARDIOVASCULAR: Regular rate and rhythm without murmurs, gallops, or rubs. RESPIRATORY: Breath sounds equal bilaterally. No accessory muscle use. GASTROINTESTINAL: Abdomen soft, non-tender, nondistended. MUSCULOSKELETAL: No cyanosis, or edema. Laboratory Laboratory Tests Test 08/09/17 17:26 08/09/17 22:55 08/10/17 04:44 08/10/17 11:11 Activated Partial Thromboplast Time 33.6 SEC 36.2 SEC 46.6 SEC Platelet Function P2Y12 React Units 239 PRU Test 08/10/17 13:30 Activated Partial Thromboplast Time 38.7 SEC Assessment and Plan Problem List: (1) ACS (acute coronary syndrome) ICD Codes: I24.9 - Acute ischemic heart disease, unspecified (2) ASHD (arteriosclerotic heart disease) ICD Codes: I25.10 - Atherosclerotic heart disease of [place] coronary artery without angina pectoris (3) Hypertensive heart disease ICD Codes: I11.9 - Hypertensive heart disease without heart failure (4) Multi-vessel coronary artery stenosis ICD Codes: I25.10 - Atherosclerotic heart disease of [place] coronary artery without angina pectoris Assessment and Plan No evidence of NH. Slight troponin elevation likely related to transient renal insufficiency. Continue IV heparin and nitrates. Aggressive risk factor modification. Proceed with CABG as planned by Dr. Diaz. Ashish Virk MD Aug 10, 2017 14:59
--- NOTE | 2017-08-10 19:12 | EKG ---
Date Performed: 08/10/2017 Time Performed: 03:44:18 PTAGE: 61 years EKG: Sinus rhythm Inferior/lateral ST-T changes are nonspecific Borderline ECG PREVIOUS TRACING 08/08/2017 03.46.39 Since previous tracing, no significant change noted DOCTOR: Ashlie Reed Interpretating Date/Time 08/10/2017 19:10:32
[2017-08-10] MEDS ORDERED: diphenhydrAMINE HCL 50 MG CAP PO ONE (21:15)
[2017-08-10] MEDS: ATORVASTATIN 80 MG TAB PO SCH (21:42)
[2017-08-11] VITALS (27 sets, daily range): BP systolic 105–186; BP diastolic 51–99; PULSE 55–87; RESP 12–18; TEMP 96.6–98.6; O2SAT 94–99
[2017-08-11] MEDS: MORPHINE SULFATE 4 MG/ML INJ IV PUSH PRN (01:00)
[2017-08-11] MEDS ORDERED: POVIDONE IODINE 5% (ANTISEPSIS KIT) 4 APPLICATIONS EACH NARE PRN (01:15)
[2017-08-11] MEDS ORDERED: INSULIN HUMAN REGULAR 1,000 UNITS/10 ML VIAL SQ PRN (01:15)
[2017-08-11] MEDS ORDERED: CHLORHEXIDINE GLUCONATE 2 % 1 PACK (2 CLOTHS) TOPICAL PRN (01:15)
[2017-08-11] MEDS ORDERED: LACTATED RINGER'S 1000 ML IV PRN (01:15)
[2017-08-11] MEDS ORDERED: METOPROLOL TARTRATE 25 MG TAB PO PRN (01:15)
[2017-08-11] MEDS ORDERED: SODIUM CHLORID 0.9% 500 ML IV PRN (01:15)
[2017-08-11] MEDS: NITROGLYCERIN 0.4 MG SL 25 TABS/BTL SL PRN (03:14)
[2017-08-11 05:03] LABS: HEMATOCRIT 36.2 % (39.0-51.0); MEAN CELL VOLUME 84.1 FL (80.0-100.0); MEAN CORPUSCULAR HEMOGLOBIN 28.5 PG (27.0-34.0); MEAN CORPUSCULAR HGB CONC 33.9 % (32.0-36.0); PLATELET COUNT 167 TH/MM3 (150-450); RED CELL DISTRIBUTION WIDTH 13.5 % (11.6-17.2); REVIEW FLAG FINAL
[2017-08-11 05:14] LABS: APTT (PATIENT) 41.1 SEC (24.3-30.1)
[2017-08-11] MEDS: NITROGLYCERIN 2% OINT 1 GM PACKET TOPICAL SCH ×3 (05:59→17:21)
[2017-08-11] MEDS: METOPROLOL TARTRATE 100 MG TAB PO SCH (05:59)
[2017-08-11] MEDS: SODIUM CHLOR 0.45% 1000 ML INJ 1,000 ML IV SCH ×2 (06:00→21:30)
[2017-08-11] MEDS ORDERED: VANCOMYCIN HCL 1000 MG VIAL ONE (07:43)
[2017-08-11] MEDS ORDERED: HEPARIN SODIUM - IV 10,000 UNITS/10 ML VIAL ONE (07:44)
[2017-08-11] MEDS: ASPIRIN EC 81 MG TABEC PO SCH (09:00)
[2017-08-11] MEDS: SODIUM CHLORIDE 0.9% FLUSH 10 ML FLUSH IV FLUSH SCH ×2 (09:00→21:01)
[2017-08-11] MEDS: ISOSORBIDE MONONITRATE 30 MG TAB PO SCH (09:00)
[2017-08-11] MEDS: MULTIVITAMIN TAB PO SCH (09:00)
[2017-08-11] MEDS ORDERED: POTASSIUM CHLORIDE 40 MEQ/20 ML VIAL ONE (09:13)
[2017-08-11] MEDS ORDERED: SUGAMMADEX SODIUM 200 MG/2 ML VIAL IV PUSH ONE ×2 (10:33)
[2017-08-11] MEDS ORDERED: DEXMEDETOMIDINE HCL 200 MCG/2 ML VIAL ONE (10:33)
--- NOTE | 2017-08-11 11:26 | HHI.PR ---
Subjective Remarks Follow-up multivessel coronary artery severe disease 08/09/17-patient seen and examined, denies any chest pain. Currently no compression or shortness of breath. No acute event overnight. Taking by mouth without any competition nausea and vomiting. 08/10/17-patient seen and examined, reports episode of chest pain overnight and early this morning. No shortness of breath. 08/11/17-patient is heading to surgery this morning. Case discussed with cardio thoracic surgeon Objective Vitals Vital Signs Date Time Temp Pulse Resp B/P (MAP) Pulse Ox O2 Delivery O2 Flow Rate FiO2 08/11/17 08:12 55 08/11/17 07:00 97.6 86 18 157/83 (107) 98 08/11/17 07:00 81 08/11/17 06:00 62 08/11/17 05:00 63 08/11/17 04:00 68 08/11/17 03:20 149/85 (106) 08/11/17 03:10 98.2 73 16 186/99 (128) 98 08/11/17 03:00 87 08/11/17 02:00 62 08/11/17 01:00 61 08/11/17 00:00 60 08/10/17 23:10 97.6 70 16 156/79 (104) 98 08/10/17 23:00 63 08/10/17 22:00 62 08/10/17 21:00 64 08/10/17 20:00 64 08/10/17 19:45 97.6 63 16 147/77 (100) 97 08/10/17 19:00 59 08/10/17 18:00 56 08/10/17 17:00 62 08/10/17 16:00 54 08/10/17 15:30 98.0 54 16 132/79 (96) 97 08/10/17 15:30 54 08/10/17 15:00 52 08/10/17 14:00 54 08/10/17 13:00 56 08/10/17 12:00 58 08/10/17 11:30 98.5 60 18 152/85 (107) 97 08/10/17 11:30 68 I/O 08/10/17 08/10/17 08/10/17 08/11/17 08/11/17 08/11/17 07:00 15:00 23:00 07:00 15:00 23:00 Intake Total 808 ml 1802 ml 1345 ml Output Total 400 ml 1000 ml 1575 ml Balance 408 ml 802 ml -230 ml Intake Oral 720 ml 900 ml 400 ml IV Total 88 ml 902 ml 945 ml Output Urine Total 400 ml 1000 ml 1575 ml # Bowel Movements 1 1 Result Diagram: 08/11/17 0420 08/09/17 0440 Objective Remarks GENERAL: NAD SKIN: Warm and dry. HEAD: Normocephalic. EYES: No scleral icterus. No injection or drainage. NECK: Supple, trachea midline. No JVD or lymphadenopathy. CARDIOVASCULAR: Regular rate and rhythm without murmurs, gallops, or rubs. RESPIRATORY: Breath sounds equal bilaterally. No accessory muscle use. GASTROINTESTINAL: Abdomen soft, non-tender, nondistended. MUSCULOSKELETAL: No cyanosis, or edema. BACK: Nontender without obvious deformity. No CVA tenderness. A/P Problem List: (1) Multi-vessel coronary artery stenosis ICD Code: I25.10 - Atherosclerotic heart disease of [place] coronary artery without angina pectoris (2) Hyperlipidemia ICD Code: E78.5 - Hyperlipidemia, unspecified (3) Hypertension ICD Code: I10 - Essential (primary) hypertension Assessment and Plan 61-year-old man with Multivessel coronary artery disease Recent left heart catheterization with finding of LAD 95% ostial lesion, Circumflex 90% and RCA 80% Cardiothoracic surgery has been consulted for plan for CABG today 08/11/17 Appreciate input from cardiology Continue with heparin drip, nitroglycerin SL, Lopressor, statin Hold CONCHITA inhibitor, Lactinex Recent Non-ST elevation [place] Appreciate input from cardiology Continue with above medical management Ischemic cardiomyopathy Currently on beta rebecca, Imdur Hypertension Continue Norvasc, Lopressor Hold CONCHITA inhibitor, hydrochlorothiazide Hyperlipidemia Continue statin DVT prophylaxis: Heparin drCliff Barrera MD Aug 11, 2017 11:26
[2017-08-11] MEDS ORDERED: fentaNYL CITRATE 2500 MCG/50 ML VIAL IV ONE (12:00)
[2017-08-11] MEDS ORDERED: ARTIFICIAL TEARS OPTH OINT 3.5 APPLIC/3.5 GM TUBO EACH EYE ONE (12:00)
[2017-08-11] MEDS ORDERED: SODIUM CHLORIDE 0.9% IV ONE (12:00)
[2017-08-11] MEDS ORDERED: GLYCOPYRROLATE 0.2 MG/ML VIAL IV ONE (12:00)
[2017-08-11] MEDS ORDERED: EPINEPHrine HCL (1:1000) 1 MG/ML VIAL IV ONE (12:00)
[2017-08-11] MEDS ORDERED: MIDAZOLAM HCL 2 MG/2 ML VIAL IV ONE (12:00)
[2017-08-11] MEDS ORDERED: ePHEDrine/NS 25 MG/5 ML SYR IV ONE (12:00)
[2017-08-11] MEDS ORDERED: HEPARIN SODIUM - SQ 10,000 UNITS/ML VIAL SQ ONE (12:00)
[2017-08-11] MEDS ORDERED: PHENYLEPH/NS 1000 MCG/10 ML SYR IV ONE (12:00)
[2017-08-11] MEDS ORDERED: PHENYLEPHRINE HCL 10 MG/ML VIAL IV ONE (12:00)
[2017-08-11] MEDS ORDERED: SODIUM CHLOR 0.9% 250 ML INJ 500 ML IV ONE (12:00)
[2017-08-11] MEDS ORDERED: LACTATED RINGER'S 1000 ML INJ 3,000 ML IV ONE (12:00)
[2017-08-11] MEDS ORDERED: AMINOCAPROIC ACID INJ 250 MG/ML 20 ML VIAL IV ONE (12:00)
[2017-08-11] MEDS ORDERED: PROTAMINE SULFATE 250 MG/25 ML VIAL IV ONE (12:00)
[2017-08-11] MEDS ORDERED: MILRINONE LACTATE 20 MG/20 ML VIAL IV ONE (12:00)
[2017-08-11] MEDS ORDERED: NORMOSOL R INJ 2,000 ML IV ONE (12:00)
[2017-08-11] MEDS ORDERED: SODIUM CHLORID 0.9% 500 ML INJ 500 ML IV ONE (12:00)
[2017-08-11] MEDS ORDERED: MAGNESIUM SULFATE 1 GM/2 ML VIAL IV ONE (12:00)
[2017-08-11] MEDS ORDERED: FUROSEMIDE 100 MG/10 ML VIAL IV PUSH ONE (12:00)
[2017-08-11] MEDS ORDERED: VECURONIUM BROMIDE 20 MG VIAL IV ONE (12:00)
[2017-08-11] MEDS ORDERED: CALCIUM CHLORIDE 10% SOLN 1 GRAM/10 ML SYR IV ONE (12:00)
[2017-08-11] MEDS ORDERED: LACTATED RINGER'S 1000 ML INJ 500 ML IV PRN (13:06)
[2017-08-11] MEDS: DOBUTamine PREMIX DRIP 250 ML IV SCH (13:06)
[2017-08-11] MEDS ORDERED: MORPHINE SULFATE 4 MG/ML INJ IV PUSH PRN (13:15)
[2017-08-11] MEDS ORDERED: CALCIUM CHLORIDE 10% 1 GRAM/10 ML VIAL IV PUSH PRN (13:15)
[2017-08-11] MEDS ORDERED: POTASSIUM CHLOR 20 MEQ PREMIX 100 ML IV PRN ×3 (13:15)
[2017-08-11] MEDS ORDERED: Post-op Orders (for Pharmacy) MISC OTHER ONE (13:15)
[2017-08-11] MEDS ORDERED: SODIUM CHLORIDE 0.9% FLUSH 10 ML FLUSH IV FLUSH PRN (13:15)
[2017-08-11] MEDS ORDERED: PHENYLEPHRINE INJ 40 MG in DEXTROSE 5% IN WATE 500 ML INJ 496 ML IV PRN ×2 (13:15)
[2017-08-11] MEDS ORDERED: hydrALAZINE HCL 20 MG/ML VIAL IV PUSH PRN (13:15)
[2017-08-11] MEDS ORDERED: MAGNESIUM SULFATE INJ 2 GM in SODIUM CHLORIDE 0.9% INJ 100 ML IV PRN ×4 (13:15)
[2017-08-11] MEDS ORDERED: ACETAMINOPHEN 325 MG TAB PO PRN (13:15)
[2017-08-11] MEDS ORDERED: INSULIN REGULAR (IV INFUSION) 100 UNITS in SODIUM CHLORIDE 0.9% INJ 99 ML IV PRN (13:15)
[2017-08-11] MEDS ORDERED: DEXMEDETOMIDINE INJ 200 MCG in SODIUM CHLORIDE 0.9% INJ 50 ML IV PRN (13:15)
[2017-08-11] MEDS ORDERED: DEXTROSE 50% IN WATER 50 ML VIAL(D50) IV PUSH PRN (13:15)
[2017-08-11] MEDS ORDERED: RESP: RACEPINEPHRINE 2.25% 0.5 ML NEB NEB PRN (13:15)
[2017-08-11] MEDS ORDERED: ACETAMINOPHEN 650 MG SUPP RECTAL PRN (13:15)
[2017-08-11] MEDS ORDERED: POTASSIUM CHLORIDE 20 MEQ CONTROLLED RELEASE TAB PO PRN ×2 (13:15)
[2017-08-11] MEDS ORDERED: METOPROLOL TARTRATE 5 MG/5 ML VIAL IV PUSH PRN (13:15)
[2017-08-11] MEDS ORDERED: CLEVIDIPINE INJ 50 ML IV PRN (13:15)
[2017-08-11] MEDS ORDERED: NITROGLYCERIN-D5W 50 MG/250 ML 250 ML IV PRN (13:15)
[2017-08-11] MEDS ORDERED: SODIUM BICARBONATE 8.4% SOLN 50 MEQ/50 ML VIAL IV PUSH PRN ×2 (13:15)
[2017-08-11] MEDS ORDERED: ALBUMIN 5% INJ 250 ML IV PRN (13:15)
[2017-08-11] MEDS ORDERED: MEPERIDINE HCL 25 MG/ML VIAL IV PUSH PRN (13:15)
[2017-08-11] MEDS ORDERED: DOPamine INJ PREMIX 500 ML IV PRN (13:15)
[2017-08-11] MEDS ORDERED: ONDANSETRON HCL 4 MG/2 ML VIAL IV PUSH PRN (13:15)
[2017-08-11] MEDS ORDERED: CALCIUM CHLORIDE INJ 1 GM in SODIUM CHLORIDE 0.9% INJ 100 ML IV PRN (14:00)
[2017-08-11] MEDS ORDERED: DEXMEDETOMIDINE 200 MCG in NS 48 ML IV PRN (14:15)
--- NOTE | 2017-08-11 14:22 | PD.OP ---
cc: Ana Maria Diaz MD; Ashish Virk MD Operative Report Date of Surgery: Aug 11, 2017 Preoperative Diagnosis: Postoperative Diagnosis: Procedure: 1. Off-pump Coronary Artery Bypass Grafting x 3 with Left Internal Mammary Artery (RICHTER) to the Left Anterior Descending (LAD), reverse saphenous vein graft to the Obtuse Marginal 1 (OM1), reverse saphenous vein graft to the Posterior Descending Artery (RPDA) 2. Left Leg Endoscopic Vein [place] 3. Intraoperative Vein Mapping Surgeon: Ana Maria Diaz Extruding Department Supervisor(s): Diego Andersen Operation and Findings: PREPROCEDURE DIAGNOSES 1. Severe Multi-Vessel Coronary Artery Disease. 2. Unstable Angina POSTPROCEDURE DIAGNOSES Same SURGICAL PROCEDURE 1. Off-pump Coronary Artery Bypass Grafting x 3 with Left Internal Mammary Artery (RICHTER) to the Left Anterior Descending (LAD), reverse saphenous vein graft to the Obtuse Marginal 1 (OM1), reverse saphenous vein graft to the Posterior Descending Artery (RPDA) 2. Left Leg Endoscopic Vein [place] 3. Intraoperative Vein Mapping SURGEON Ana Maria Diaz MD COMPUTER TAPE LIBRARIAN Jigar Andersen WAX CUTTER ANESTHESIA General endotracheal MANAGER CULINARY NICOLE Lomeli MD PREPARATION ChloraPrep. COUNTS Needle, sponge, and instrument counts were correct. DRAINS Two 32-[place] mediastinal tubes. COMPLICATIONS None. INDICATIONS FOR PROCEDURE The patient is a 61-year-old presenting with chest pain and multi-vessel coronary artery disease. He is being brought to the operating room for surgical revascularization therapy. PROCEDURE Patient was brought to the operating room and placed supine on the OR table. Following the induction of adequate general endotracheal anesthesia and placement of appropriate monitoring devices, intraoperative vein mapping was performed which revealed suitable-caliber conduit in both legs. The patient was then prepped and draped in standard sterile fashion. Next, 2500 units of intravenous heparin was given. The left greater saphenous vein was harvested endoscopically from the thigh. This appeared to be a useable-caliber conduit. Simultaneously, a median sternotomy was performed and the left internal mammary artery dissected free off the posterior sternal table. The patient was systemically heparinized and anticoagulation monitored by serial ACT measurements. The internal mammary artery had good pulsatile flow in it and was a decent-caliber conduit. The pericardium was then divided in the midline, the cradle created and targets analyzed. At this point, all anastomoses were performed in a beating-heart fashion using the Maquet stabilizing system. The left internal mammary artery was anastomosed to the mid LAD (2 mm) in an end-to- side fashion using 7-0 Prolene. The next segment was anastomosed to the OM1 (2 mm) in an end-to-side fashion using a running 7-0 Prolene. The final segment was anastomosed to the RPDA (2.5 mm) in an end-to-side fashion using a running 7 -0 Prolene. The proximal anastomoses were then constructed to the ascending aorta in a running manner using 6-0 Prolene. All anastomotic sites were inspected and appeared to be hemostatic and patent. Protamine solution was given. Strict hemostasis was assured. The closure was undertaken. 2 chest tubes were placed. The pericardium was reapproximated in the midline. The sternum was approximated using sternal wires. The muscular and fascial layer were then closed in 3 layers. The endoscopic vein harvest site was closed in 2 layers. The patient tolerated the procedure well and was transferred to CVICU in stable condition. Ana Maria Diaz MD Aug 11, 2017 14:22
--- NOTE | 2017-08-11 14:57 | RADRPT ---
EXAM DATE/TIME: 08/11/2017 14:11 [facility] COMPARISON: CHEST SINGLE AP, August 03, 2017, 15:45. INDICATIONS : Post CABG. MEDICAL HISTORY : Hypertension. Hyperlipidema. SURGICAL HISTORY : None. ENCOUNTER: Initial ACUITY: 1 day PAIN SCORE: Non-responsive. LOCATION: Bilateral chest FINDINGS: Portable AP view of the chest demonstrates a normal size cardiac silhouette in this patient post rece nt median sternotomy. Endotracheal tube tip is at the aortic knob level measuring approximately 4.6 c m in the jp. Right IJ line distal tip is in the SVC. Nasogastric tube extends down the esophagus and makes a 180 turn in the proximal stomach and extends back into the esophagus and distal tip is i n the lower cervical esophagus. Lungs are underinflated. A left chest tube is present. No pneumothora x is visualized. CONCLUSION: 1. Nasogastric tube in abnormal position and should be repositioned. It is folded back upon itself in the esophagus and distal tip is in the lower cervical esophagus. 2. Otherwise, expected postsurgical changes, as above. There is no pneumothorax. Jigar Benites MD on August 11, 2017 at 14:53 Board Certified Radiologist. This report was verified electronically.
[2017-08-11] MEDS: ACETAMINOPHEN 1000 MG/100 ML 100 ML IV SCH ×2 (15:14→20:54)
--- NOTE | 2017-08-11 15:29 | HHI.FF ---
Face to Face Verification Diagnosis: (1) Hyperlipidemia (2) Hypertension (3) Multi-vessel coronary artery stenosis (4) ASHD (arteriosclerotic heart disease) (5) ACS (acute coronary syndrome) (6) Hypertensive heart disease (7) S/P CABG x 3 Home Health Nursing Order: Signs/symptoms of disease process Medication education-adverse effect Wound care and dressing changes Nursing assessment with vital signs Instructions: Heart and Vascular Surgery patients *Special attention to sternal dressing Mandatory frequency Assess and evaluation, 4 days in a row The next week 3X week 2 times a week for 4 weeks 1 time a week for 5 weeks Schedule Heart and Vascular patients for full 60 day certification period Initial visit Review Open Heart Surgery Discharge Instructions (Sternal precautions, Activity, Elastic hose, Incision care, Driving, Incentive spirometry, Smoking, [place], Work and other) Need Betadine to paint incision Medication reconciliation Importance of follow up care/ check on appointments Make calendar record temperature daily When to call [facility] nurse, review instructions, phone list Incentive Spirometry, demonstration Visit 1- Begin discharge instruction for patient family and/ or caregiver using teach back method- Signs and symptoms of infection Disease characteristics Medicines and side effects Foods and nutrition/ appetite Infection control/ hand washing/ hygiene Visit 2- Continue teaching Discharge instructions- include additional information on smoking cessation , sternal dressing (sternal vac) Visit 3- Continue teaching- Cough and deep breathing, incision monitoring. Choose my plate Visit 4- Continue teaching- Discuss limitations Discuss how they are feeling Discuss progress toward goals Remaining visits- continue teaching and monitoring PREVENA Single Use Negative Wound Therapy System Caregiver Instruction Sheet 1. A Prevena dressing system was applied to the chest incision during surgery , to promote wound healing. It works via a suction device (negative pressure wound therapy) to remove low to moderate levels of exudate (drainage) and infectious materials. We recommend that the device stay in place for up to seven days, from day of surgery. 2. Day of Surgery___08/11/17 Day of Removal ___08/18/17 3. The dressing should only be removed by a health career professional. Please arrange removal of device to coincide with Home Health visit and or with Nursing staff at Rehab 4. If skin reddening or irritation of skin occurs, or excessive drainage, please notify the Cardiovascular Surgeons office at [phone]. 5. Light showering is permissible; however the pump should be disconnected and placed in safe location, where it will not get wet. The dressing should not be exposed to direct spray or submerged in water. No bath tub / shower only. Ensure the end of the tubing attached to the dressing is facing down so that water does not enter the top of the tube. 6. To remove Prevena dressing: press purple button to turn off device / remove the suction. Then disconnect the tubing from the pump. The fixation strips should be stretched away from the skin and the dressing lifted at one corner and peeled back until it has been fully removed. 7. After removal, it is ok to shower daily using liquid dial soap and clean wash cloth, rinse and pat dry, and leave incision open to air dry. For any concerns regarding Prevena dressing, and or wounds, please contact Saida Porras, patient navigator at [phone] or notify the Cardiovascular Surgeons office at [phone]. Incentive spirometry Q1 hr x 10, while awake, also use acapella device hourly whole awake Sternal Breast Bone Precautions: NO pushing or pulling, ( pt must use sternal pillow to support chest with all activities and with coughing ( takes up to 3 months breast bone to heal ) Daily incision care: ok to shower daily, no tub bath. Wash all incisions with liquid dial soap, clean wash cloth to each site, rinse and pat dry. Observe for any signs of infection, such as drainage which is dark yellow, kurtz, green or foul smelling. Immediately report to the surgeon any drainage from the chest incision, or legs, and for any abnormal drainage from the chest tube sites. Notify surgeon if any temp >101.5 degrees F. When specialty dressing removed/ or if you do not have one, continue to shower daily as above, then rinse and pat incision dry and paint with betadine daily x 5 days. Allow steri strips to fall off if you have any. Avoid lotions, creams, salves, oils, etc. for the first month Please see attached forms for additional instructions regarding post Open Heart specialty wound vacuum dressings. DEJAN or Prevena , Dressing to be removed by Nursing staff on __08/18/17 F/U appointment: as per DC instructions: PCP in 2 weeks, CV surgeon 2 weeks, [facility] 3-4 weeks For any questions regarding incisions/ dressing / meds / post op care or above Symptoms, Thursday 8am-5pm Heart & Vascular Surgery Office ( Dr. Diaz & Dr. Cross), After Hours / Nights (5pm -8am) Weekends and Holidays Please call [facility] Card[facility] ([facility]) Charge Nurse I have seen patient Davin Pastor on 08/11/17. My clinical findings support the need for the requested home health care services because: Deconditioned w/ increased weakness I certify that my clinical findings support that this patient is homebound because: Post-op weakness Liset Byrnes Aug 11, 2017 15:29
[2017-08-11] MEDS: RESP: ALBUTEROL 2.5 MG/IPRATROPIUM 0.5 MG NEB (SCH) NEB ×2 (17:14→21:33)
[2017-08-11] MEDS ORDERED: VANCOMYCIN INJ 1,750 MG in SODIUM CHLOR 0.9% 250 ML INJ 250 ML IV SCH (21:00)
[2017-08-11] MEDS: ATORVASTATIN 80 MG TAB PO SCH (21:00)
[2017-08-11] MEDS: AMIODARONE 200 MG TAB PO SCH (21:00)
[2017-08-11] MEDS ORDERED: VANCOMYCIN INJ 1,750 MG in SODIUM CHLORID 0.9% 500 ML INJ 500 ML IV SCH (21:15)
[2017-08-11] MEDS: VANCOMYCIN INJ 1,750 MG in SODIUM CHLORID 0.9% 500 ML INJ 500 ML IV SCH (21:46)
[2017-08-12] VITALS (23 sets, daily range): BP systolic 115–137; BP diastolic 52–67; PULSE 70–104; RESP 16–20; TEMP 97.9–99.8; O2SAT 93–97
[2017-08-12] MEDS: ACETAMINOPHEN 1000 MG/100 ML 100 ML IV SCH ×2 (02:24→08:44)
[2017-08-12] MEDS: RESP: ALBUTEROL 2.5 MG/IPRATROPIUM 0.5 MG NEB (SCH) NEB ×4 (03:40→20:20)
--- NOTE | 2017-08-12 04:21 | RADRPT ---
EXAM DATE/TIME: 08/12/2017 03:49 [facility] COMPARISON: CHEST SINGLE AP, August 11, 2017, 14:11. INDICATIONS : Short of breath. MEDICAL HISTORY : Hypertension. Hyperlipidema. SURGICAL HISTORY : CABG. ENCOUNTER: Subsequent ACUITY: 2 days PAIN SCORE: 0/10 LOCATION: Bilateral chest FINDINGS: A single view of the chest demonstrates the left chest tube, right IJ central line and mediastinal dr ain all in good position. There are sternal wires. Lungs remain grossly clear.. The cardiomediastina l contours are unremarkable. Osseous structures are intact. CONCLUSION: Normal examination. Lungs remain grossly clear. Brayden Quiñones MD on August 12, 2017 at 4:19 Board Certified Radiologist. This report was verified electronically.
[2017-08-12] MEDS: NITROGLYCERIN 2% OINT 1 GM PACKET TOPICAL SCH ×2 (04:38)
[2017-08-12] MEDS: oxyCODONE/ACETAMINOPHEN 5 MG/325 MG TAB PO PRN ×5 (04:38→22:05)
[2017-08-12] MEDS: PANTOPRAZOLE SOD 40 MG DELAYED RELEASE TAB PO SCH (04:38)
[2017-08-12] MEDS: DOBUTamine PREMIX DRIP 250 ML IV SCH (04:45)
[2017-08-12 05:12] LABS: HEMATOCRIT 25.6 % (39.0-51.0); MEAN CELL VOLUME 85.4 FL (80.0-100.0); MEAN CORPUSCULAR HEMOGLOBIN 29.3 PG (27.0-34.0); MEAN CORPUSCULAR HGB CONC 34.3 % (32.0-36.0); PLATELET COUNT 164 TH/MM3 (150-450); RED BLOOD COUNT 2.99 MIL/MM3 (4.50-5.90); RED CELL DISTRIBUTION WIDTH 13.7 % (11.6-17.2); REVIEW FLAG FINAL; WHITE BLOOD COUNT 11.9 TH/MM3 (4.0-11.0)
[2017-08-12 05:31] LABS: BICARBONATE 23.1 MEQ/L (21.0-32.0); POTASSIUM 4.2 MEQ/L (3.5-5.1)
[2017-08-12] MEDS ORDERED: GLUCAGON 1 MG/ML VIAL OTHER PRN (08:30)
[2017-08-12] MEDS ORDERED: SOD PHOSPHATE/SOD BIPHOSPHATE (ADULT) ENEMA 133ML RECTAL PRN (08:30)
[2017-08-12] MEDS ORDERED: BISACODYL 10 MG SUPP RECTAL PRN (08:30)
[2017-08-12] MEDS ORDERED: FUROSEMIDE 40 MG/4 ML VIAL IV PUSH ONE (08:30)
[2017-08-12] MEDS ORDERED: POTASSIUM CHLORIDE 10 MEQ CAP PO ONE (08:30)
[2017-08-12] MEDS ORDERED: DEXTROSE 50% IN WATER 50 ML VIAL(D50) IV PUSH PRN (08:30)
[2017-08-12] MEDS: SODIUM CHLORIDE 0.9% FLUSH 10 ML FLUSH IV FLUSH SCH ×2 (08:44→21:42)
[2017-08-12] MEDS: CLOPIDOGREL 75 MG TAB PO SCH (08:44)
[2017-08-12] MEDS: ASPIRIN 81 MG CHEW TAB PO SCH (08:45)
[2017-08-12] MEDS: AMIODARONE 200 MG TAB PO SCH ×2 (08:45→21:40)
[2017-08-12] MEDS: MULTIVITAMINS/MINERALS THERAPEUTIC TAB PO SCH (09:00)
[2017-08-12] MEDS: MULTIVITAMIN TAB PO SCH (09:00)
[2017-08-12] MEDS: MAGNESIUM HYDROXIDE SUSP 30 ML CUP PO SCH (09:00)
[2017-08-12] MEDS: METOPROLOL TARTRATE 25 MG TAB PO SCH ×2 (09:20→21:39)
--- NOTE | 2017-08-12 09:48 | PD.CAR.PN ---
CVT Progress Note Subjective/Hospital Course: 61/ male scheduled for CABG this week with Dr. Diaz on 08/12 2/2 being on plavix . Presented to the ED with rest chest pain and had a very slight troponin elevation. He is currently comfortable and pain free on heparin IV. he is patient of Dr. Virk, with known severe three-vessel coronary artery disease. He had recently had an abnormal stress test and underwent cardiac catheterization on August 08 revealing severe three-vessel coronary disease and he was referred for bypass surgery revascularization. [place] and began to get short of breath but had no chest pain. He said he could not sleep well the night before he came in , and then began having some left upper chest discomfort that lasted about 10 minutes radiating to his left shoulder and arm. It was dull and achy. He did not take any sublingual nitroglycerin since he did not feel it was bad enough. He did come to the emergency room for evaluation. His initial cardiac enzymes were negative then went to 0.08 . He is currently asymptomatic lying in bed. His initial EKG was unremarkable. PAST HISTORY 1. Coronary artery disease. 2. Hypertension. 08/10 pt now on nitro paste , ASA and heparin gtt he has now been scheduled for surgery in am currently pain free 08/11 surgery: 1. Off-pump Coronary Artery Bypass Grafting x 3 with Left Internal Mammary Artery (RICHTER) to the Left Anterior Descending (LAD), reverse saphenous vein graft to the Obtuse Marginal 1 (OM1), reverse saphenous vein graft to the Posterior Descending Artery (RPDA), Left Leg Endoscopic Vein [place] extubated after surgery crystalloid 3500cc/ 500cc cell saver, 1000cc EBL 08/12 not feeling well this am weaned off insulin gtt BP elevated , BB resumed gentle diuresis , PT/ OOB transfer to stepdown unit Objective: GENERAL: SKIN: Warm and dry. prevena dressing to chest , abe wrap to left leg HEAD: Normocephalic. EYES: No scleral icterus. No injection or drainage. NECK: Supple, trachea midline. No JVD or lymphadenopathy. CARDIOVASCULAR: Regular rate and rhythm without murmurs, gallops, or rubs. mild general edema RESPIRATORY: Breath sounds equal bilaterally. No accessory muscle use. diminished in bases , chest tube to wall suction, no air leak, drained 150cc/ 12hrs GASTROINTESTINAL: Abdomen soft, non-tender, nondistended. MUSCULOSKELETAL: No cyanosis, or edema. BACK: Nontender without obvious deformity. No CVA tenderness. Vital Signs Date Time Temp Pulse Resp B/P (MAP) Pulse Ox O2 Delivery O2 Flow Rate FiO2 08/12/17 08:00 97 08/12/17 08:00 96 Nasal Cannula 08/12/17 07:50 97 Nasal Cannula 4.00 08/12/17 07:30 98.8 99 18 131/52 (78) 96 08/12/17 05:40 18 08/12/17 04:00 99.8 97 18 136/56 (82) 97 08/12/17 03:45 89 08/12/17 03:30 97 Nasal Cannula 4.00 08/12/17 03:00 18 08/12/17 00:00 98.3 70 18 132/55 (80) 97 08/11/17 23:30 68 08/11/17 23:30 97 Nasal Cannula 4.00 08/11/17 21:33 99 Nasal Cannula 4.00 08/11/17 20:00 99 Nasal Cannula 5.00 08/11/17 20:00 98.3 60 18 114/51 (72) 99 08/11/17 19:10 62 08/11/17 18:18 62 08/11/17 17:21 98.6 08/11/17 17:08 63 08/11/17 16:02 94 Nasal Cannula 6.00 08/11/17 16:01 63 08/11/17 15:17 62 08/11/17 15:16 96.6 63 17 117/60 (79) 94 08/11/17 14:38 98.6 08/11/17 14:37 94 Nasal Cannula 6.00 08/11/17 14:30 94 Nasal Cannula 6 08/11/17 14:30 94 Nasal Cannula 6.00 08/11/17 14:01 61 08/11/17 14:00 50 08/11/17 13:58 98 Mechanical Ventilator 50 08/11/17 13:53 97.6 63 12 105/62 (76) 98 08/11/17 13:49 70 08/11/17 13:38 98 50 Labs: Laboratory Tests Test 08/12/17 04:25 White Blood Count 11.9 TH/MM3 (4.0-11.0) Red Blood Count 2.99 MIL/MM3 (4.50-5.90) Hemoglobin 8.8 GM/DL (13.0-17.0) Hematocrit 25.6 % (39.0-51.0) Mean Corpuscular Volume 85.4 FL (80.0-100.0) Mean Corpuscular Hemoglobin 29.3 PG (27.0-34.0) Mean Corpuscular Hemoglobin Concent 34.3 % (32.0-36.0) Red Cell Distribution Width 13.7 % (11.6-17.2) Platelet Count 164 TH/MM3 (150-450) Mean Platelet Volume 9.8 FL (7.0-11.0) Blood Urea Nitrogen 16 MG/DL (7-18) Creatinine 1.29 MG/DL (0.60-1.30) Random Glucose 147 MG/DL (74-106) Calcium Level 7.8 MG/DL (8.5-10.1) Magnesium Level 2.0 MG/DL (1.5-2.5) Sodium Level 141 MEQ/L (136-145) Potassium Level 4.2 MEQ/L (3.5-5.1) Chloride Level 108 MEQ/L (98-107) Carbon Dioxide Level 23.1 MEQ/L (21.0-32.0) Anion Gap 10 MEQ/L (5-15) Estimat Glomerular Filtration Rate 57 ML/MIN (>89) Result Diagram: 08/12/1742408/12/17424 Telemetry: NSR (1) ACS (acute coronary syndrome) Plan: Mild TnI elevation seen. (2) ASHD (arteriosclerotic heart disease) (3) Hypertensive heart disease Plan: resume BB gentle diuresis (4) Multi-vessel coronary artery stenosis (5) S/P CABG x 3 Plan: ASA, statin , plavix , BB OOB ambulate pain control (6) Prediabetes Plan: diabetic diet, insulin sliding scale dietary consult (7) Chronic kidney disease Plan: monitor indices Problem Qualifiers (1) Chronic kidney disease: Qualified Codes: N18.2 - Chronic kidney disease, stage 2 (mild) Liset Byrnes Aug 12, 2017 09:48
[2017-08-12] MEDS: INSULIN ASPART SUPPLEMENTAL SCALE SQ SCH ×4 (10:00→22:14)
[2017-08-12] MEDS: VANCOMYCIN INJ 1,750 MG in SODIUM CHLORID 0.9% 500 ML INJ 500 ML IV SCH ×2 (10:00→22:13)
[2017-08-12] MEDS: SENNOSIDES 8.6 MG TAB PO SCH (21:40)
[2017-08-12] MEDS: DOCUSATE SODIUM 100 MG CAP PO SCH (21:40)
[2017-08-12] MEDS: ATORVASTATIN 80 MG TAB PO SCH (21:40)
[2017-08-13] VITALS (44 sets, daily range): BP systolic 118–156; BP diastolic 58–71; PULSE 62–124; RESP 16–20; TEMP 98.4–100.5; O2SAT 92–99
[2017-08-13] MEDS: oxyCODONE/ACETAMINOPHEN 5 MG/325 MG TAB PO PRN ×6 (01:10→23:06)
[2017-08-13] MEDS: INSULIN ASPART SUPPLEMENTAL SCALE SQ SCH ×5 (02:00→21:00)
[2017-08-13 05:03] LABS: AUTOMATED NEUTROPHIL # 8.7 TH/MM3 (1.8-7.7); BASOPHIL % 0.3 % (0.0-2.0); EOSINOPHIL # 0.1 TH/MM3 (0-0.4); EOSINOPHIL % 0.6 % (0.0-4.0); LYMPH % 9.6 % (9.0-44.0); LYMPHOCYTE # 1.1 TH/MM3 (1.0-4.8); MEAN CELL VOLUME 85.5 FL (80.0-100.0); MEAN CORPUSCULAR HEMOGLOBIN 28.9 PG (27.0-34.0); MEAN CORPUSCULAR HGB CONC 33.9 % (32.0-36.0); MONO % 10.7 % (0.0-8.0); NEUT % 78.8 % (16.0-70.0); PLATELET COUNT 161 TH/MM3 (150-450); RED BLOOD COUNT 2.16 MIL/MM3 (4.50-5.90); RED CELL DISTRIBUTION WIDTH 14.3 % (11.6-17.2)
[2017-08-13 05:11] LABS: HEMO FLAGS DIFF FINAL
[2017-08-13 05:17] LABS: HEMATOCRIT 18.4 % (39.0-51.0)
[2017-08-13 05:26] LABS: BICARBONATE 26.7 MEQ/L (21.0-32.0); POTASSIUM 4.3 MEQ/L (3.5-5.1)
[2017-08-13] MEDS: PANTOPRAZOLE SOD 40 MG DELAYED RELEASE TAB PO SCH (06:04)
[2017-08-13] MEDS: RESP: ALBUTEROL 2.5 MG/IPRATROPIUM 0.5 MG NEB (SCH) NEB ×3 (07:47→21:27)
[2017-08-13] MEDS ORDERED: FUROSEMIDE 20 MG/2 ML VIAL IV PUSH ONE ×2 (08:30→16:45)
[2017-08-13] MEDS: CLOPIDOGREL 75 MG TAB PO SCH (09:00)
[2017-08-13] MEDS: SODIUM CHLORIDE 0.9% FLUSH 10 ML FLUSH IV FLUSH SCH ×2 (09:00→21:12)
[2017-08-13] MEDS: MULTIVITAMINS/MINERALS THERAPEUTIC TAB PO SCH (09:00)
[2017-08-13] MEDS: MULTIVITAMIN TAB PO SCH (09:24)
[2017-08-13] MEDS: DOCUSATE SODIUM 100 MG CAP PO SCH ×2 (09:24→21:11)
[2017-08-13] MEDS: POLYETHYLENE GLYCOL 17 GM PKG PO SCH (09:24)
[2017-08-13] MEDS: MAGNESIUM HYDROXIDE SUSP 30 ML CUP PO SCH (09:24)
[2017-08-13] MEDS: AMIODARONE 200 MG TAB PO SCH ×2 (09:25→21:11)
[2017-08-13] MEDS: METOPROLOL TARTRATE 25 MG TAB PO SCH ×2 (09:25→21:11)
[2017-08-13] MEDS: ASPIRIN 81 MG CHEW TAB PO SCH (09:26)
--- NOTE | 2017-08-13 15:55 | PD.CAR.PN ---
CVT Progress Note Subjective/Hospital Course: 61/ male scheduled for CABG this week with Dr. Diaz on 08/12 2/ being on plavix . Presented to the ED with rest chest pain and had a very slight troponin elevation. He is currently comfortable and pain free on heparin IV. he is patient of Dr. Virk, with known severe three-vessel coronary artery disease. He had recently had an abnormal stress test and underwent cardiac catheterization on August 08 revealing severe three-vessel coronary disease and he was referred for bypass surgery revascularization. [place] and began to get short of breath but had no chest pain. He said he could not sleep well the night before he came in , and then began having some left upper chest discomfort that lasted about 10 minutes radiating to his left shoulder and arm. It was dull and achy. He did not take any sublingual nitroglycerin since he did not feel it was bad enough. He did come to the emergency room for evaluation. His initial cardiac enzymes were negative then went to 0.08 . He is currently asymptomatic lying in bed. His initial EKG was unremarkable. PAST HISTORY 1. Coronary artery disease. 2. Hypertension. 08/10 pt now on nitro paste , ASA and heparin gtt he has now been scheduled for surgery in am currently pain free 08/11 surgery: 1. Off-pump Coronary Artery Bypass Grafting x 3 with Left Internal Mammary Artery (RICHTER) to the Left Anterior Descending (LAD), reverse saphenous vein graft to the Obtuse Marginal 1 (OM1), reverse saphenous vein graft to the Posterior Descending Artery (RPDA), Left Leg Endoscopic Vein [place] extubated after surgery crystalloid 3500cc/ 500cc cell saver, 1000cc EBL 08/12 not feeling well this am weaned off insulin gtt BP elevated , BB resumed gentle diuresis , PT/ OOB transfer to stepdown unit 08/13 chest tube removed without difficulty HGB 6.2/ for 2 units PRBC today , f/u labs in am Objective: GENERAL: SKIN: Warm and dry. prevena to chest HEAD: Normocephalic. EYES: No scleral icterus. No injection or drainage. NECK: Supple, trachea midline. No JVD or lymphadenopathy. CARDIOVASCULAR: Regular rate and rhythm without murmurs, gallops, or rubs. RESPIRATORY: Breath sounds equal bilaterally. No accessory muscle use. GASTROINTESTINAL: Abdomen soft, non-tender, nondistended. MUSCULOSKELETAL: No cyanosis, or edema. BACK: Nontender without obvious deformity. No CVA tenderness. Vital Signs Date Time Temp Pulse Resp B/P (MAP) Pulse Ox O2 Delivery O2 Flow Rate FiO2 08/13/17 15:43 93 Nasal Cannula 2.00 08/13/17 15:00 99.3 87 18 132/64 (86) 92 08/13/17 15:00 86 08/13/17 14:00 86 08/13/17 13:08 99.8 90 16 135/63 96 08/13/17 13:03 86 17 140/66 94 08/13/17 13:00 110 08/13/17 12:58 98.5 93 20 140/68 94 08/13/17 12:52 98.4 90 152/71 92 08/13/17 12:00 90 08/13/17 11:49 92 Nasal Cannula 1.00 08/13/17 11:10 99.6 91 16 146/64 (91) 92 08/13/17 11:00 92 08/13/17 10:00 90 08/13/17 09:00 124 08/13/17 08:18 17 08/13/17 08:00 86 08/13/17 08:00 95 Nasal Cannula 1.00 08/13/17 07:59 100.5 95 18 121/62 (81) 95 08/13/17 07:49 99 Nasal Cannula 1.00 08/13/17 07:00 78 08/13/17 06:01 98 Nasal Cannula 3.00 08/13/17 06:01 81 08/13/17 05:00 74 08/13/17 04:02 98.4 80 20 118/58 (78) 95 08/13/17 04:00 82 08/13/17 03:00 77 08/13/17 02:15 73 08/13/17 01:04 98.6 78 20 121/60 (80) 97 08/13/17 01:04 62 08/13/17 01:04 97 Nasal Cannula 3.00 08/13/17 00:39 81 08/12/17 23:00 81 08/12/17 22:00 80 08/12/17 21:00 81 08/12/17 20:20 93 Nasal Cannula 3.00 08/12/17 20:00 79 08/12/17 19:00 98.6 89 20 124/65 (84) 94 08/12/17 19:00 94 Nasal Cannula 3.00 08/12/17 19:00 89 08/12/17 18:00 81 08/12/17 17:00 84 08/12/17 16:00 77 Labs: Laboratory Tests Test 08/13/17 04:11 White Blood Count 11.0 TH/MM3 (4.0-11.0) Red Blood Count 2.16 MIL/MM3 (4.50-5.90) Hemoglobin 6.2 GM/DL (13.0-17.0) Hematocrit 18.4 % (39.0-51.0) Mean Corpuscular Volume 85.5 FL (80.0-100.0) Mean Corpuscular Hemoglobin 28.9 PG (27.0-34.0) Mean Corpuscular Hemoglobin Concent 33.9 % (32.0-36.0) Red Cell Distribution Width 14.3 % (11.6-17.2) Platelet Count 161 TH/MM3 (150-450) Mean Platelet Volume 9.8 FL (7.0-11.0) Neutrophils (%) (Auto) 78.8 % (16.0-70.0) Lymphocytes (%) (Auto) 9.6 % (9.0-44.0) Monocytes (%) (Auto) 10.7 % (0.0-8.0) Eosinophils (%) (Auto) 0.6 % (0.0-4.0) Basophils (%) (Auto) 0.3 % (0.0-2.0) Neutrophils # (Auto) 8.7 TH/MM3 (1.8-7.7) Lymphocytes # (Auto) 1.1 TH/MM3 (1.0-4.8) Monocytes # (Auto) 1.2 TH/MM3 (0-0.9) Eosinophils # (Auto) 0.1 TH/MM3 (0-0.4) Basophils # (Auto) 0.0 TH/MM3 (0-0.2) CBC Comment DIFF FINAL Differential Comment Blood Urea Nitrogen 16 MG/DL (7-18) Creatinine 1.37 MG/DL (0.60-1.30) Random Glucose 113 MG/DL (74-106) Calcium Level 7.9 MG/DL (8.5-10.1) Magnesium Level 2.0 MG/DL (1.5-2.5) Sodium Level 137 MEQ/L (136-145) Potassium Level 4.3 MEQ/L (3.5-5.1) Chloride Level 104 MEQ/L (98-107) Carbon Dioxide Level 26.7 MEQ/L (21.0-32.0) Anion Gap 6 MEQ/L (5-15) Estimat Glomerular Filtration Rate 53 ML/MIN (>89) Result Diagram: 08/13/1741008/13/17410 (1) ACS (acute coronary syndrome) Plan: Mild TnI elevation seen. (2) ASHD (arteriosclerotic heart disease) (3) Hypertensive heart disease Plan: resume BB gentle diuresis (4) Multi-vessel coronary artery stenosis (5) S/P CABG x 3 Plan: ASA, statin , plavix , BB OOB ambulate pain control (6) Prediabetes Plan: diabetic diet, insulin sliding scale dietary consult (7) Chronic kidney disease Plan: monitor indices (8) Blood loss anemia Plan: transfuse 2 units PRBC Problem Qualifiers (1) Chronic kidney disease: Qualified Codes: N18.2 - Chronic kidney disease, stage 2 (mild) Liset Byrnes Aug 13, 2017 15:55
--- NOTE | 2017-08-13 17:00 | RADRPT ---
EXAM DATE/TIME: 08/13/2017 16:26 [facility] COMPARISON: CHEST SINGLE AP, August 12, 2017, 3:49. INDICATIONS : Post chest tube removal. Rule out pneumothorax. MEDICAL HISTORY : Hypertension. Shortness of breathe. Hyperlipidemia. SURGICAL HISTORY : None. ENCOUNTER: Subsequent ACUITY: 2 days PAIN SCORE: 0/10 LOCATION: Bilateral chest FINDINGS: The patient's right sided central venous catheter is in satisfactory position. There is been removal of the mediastinal drain and chest tubes. There is minimal effusion at the left lung base. The lungs are otherwise clear with no evidence of pneumothorax. The bony structures are g rossly intact. CONCLUSION: 1. No pneumothorax identified following removal of the patient's chest tube and mediastinal drain. 2. Small amount of effusion at the left lung base. Hadley Maciel MD on August 13, 2017 at 16:57 Board Certified Radiologist. This report was verified electronically.
[2017-08-13] MEDS: SENNOSIDES 8.6 MG TAB PO SCH (21:11)
[2017-08-13] MEDS: ATORVASTATIN 80 MG TAB PO SCH (21:11)
[2017-08-14] VITALS (29 sets, daily range): BP systolic 108–155; BP diastolic 57–80; PULSE 69–86; RESP 18–19; TEMP 97.9–98.6; O2SAT 91–97
[2017-08-14] MEDS: PANTOPRAZOLE SOD 40 MG DELAYED RELEASE TAB PO SCH (05:22)
[2017-08-14 06:09] LABS: HEMATOCRIT 25.6 % (39.0-51.0); MEAN CELL VOLUME 86.1 FL (80.0-100.0); MEAN CORPUSCULAR HEMOGLOBIN 30.2 PG (27.0-34.0); MEAN CORPUSCULAR HGB CONC 35.1 % (32.0-36.0); PLATELET COUNT 148 TH/MM3 (150-450); RED BLOOD COUNT 2.97 MIL/MM3 (4.50-5.90); RED CELL DISTRIBUTION WIDTH 14.2 % (11.6-17.2); REVIEW FLAG FINAL; WHITE BLOOD COUNT 9.2 TH/MM3 (4.0-11.0)
[2017-08-14 06:35] LABS: BICARBONATE 29.5 MEQ/L (21.0-32.0); POTASSIUM 3.9 MEQ/L (3.5-5.1)
[2017-08-14] MEDS: RESP: ALBUTEROL 2.5 MG/IPRATROPIUM 0.5 MG NEB (SCH) NEB (07:56)
[2017-08-14] MEDS: INSULIN ASPART SUPPLEMENTAL SCALE SQ SCH ×4 (08:00→20:50)
[2017-08-14] MEDS: MAGNESIUM HYDROXIDE SUSP 30 ML CUP PO SCH (08:19)
[2017-08-14] MEDS: POLYETHYLENE GLYCOL 17 GM PKG PO SCH (08:19)
[2017-08-14] MEDS: METOPROLOL TARTRATE 25 MG TAB PO SCH ×2 (08:20→20:31)
[2017-08-14] MEDS: MULTIVITAMINS/MINERALS THERAPEUTIC TAB PO SCH (08:20)
[2017-08-14] MEDS: AMIODARONE 200 MG TAB PO SCH ×2 (08:20→20:31)
[2017-08-14] MEDS: DOCUSATE SODIUM 100 MG CAP PO SCH ×2 (08:20→20:31)
[2017-08-14] MEDS: SODIUM CHLORIDE 0.9% FLUSH 10 ML FLUSH IV FLUSH SCH ×2 (08:23→20:50)
[2017-08-14] MEDS: MULTIVITAMIN TAB PO SCH (08:23)
[2017-08-14] MEDS ORDERED: POTASSIUM CHLORIDE 10 MEQ CONTROLLED RELEASE TAB PO ONE (11:00)
[2017-08-14] MEDS ORDERED: FUROSEMIDE 40 MG/4 ML VIAL IV PUSH ONE ×2 (11:00→14:00)
[2017-08-14] MEDS: ASPIRIN 81 MG CHEW TAB PO SCH (11:22)
[2017-08-14] MEDS: CLOPIDOGREL 75 MG TAB PO SCH (11:22)
[2017-08-14] MEDS: oxyCODONE/ACETAMINOPHEN 5 MG/325 MG TAB PO PRN ×2 (12:28→19:41)
--- NOTE | 2017-08-14 13:24 | PD.CAR.PN ---
CVT Progress Note Subjective/Hospital Course: 61/ male scheduled for CABG this week with Dr. Diaz on 08/12 2/2 being on plavix . Presented to the ED with rest chest pain and had a very slight troponin elevation. He is currently comfortable and pain free on heparin IV. he is patient of Dr. Virk, with known severe three-vessel coronary artery disease. He had recently had an abnormal stress test and underwent cardiac catheterization on August 08 revealing severe three-vessel coronary disease and he was referred for bypass surgery revascularization. [place] and began to get short of breath but had no chest pain. He said he could not sleep well the night before he came in , and then began having some left upper chest discomfort that lasted about 10 minutes radiating to his left shoulder and arm. It was dull and achy. He did not take any sublingual nitroglycerin since he did not feel it was bad enough. He did come to the emergency room for evaluation. His initial cardiac enzymes were negative then went to 0.08 . He is currently asymptomatic lying in bed. His initial EKG was unremarkable. PAST HISTORY 1. Coronary artery disease. 2. Hypertension. 08/10 pt now on nitro paste , ASA and heparin gtt he has now been scheduled for surgery in am currently pain free 08/11 surgery: 1. Off-pump Coronary Artery Bypass Grafting x 3 with Left Internal Mammary Artery (RICHTER) to the Left Anterior Descending (LAD), reverse saphenous vein graft to the Obtuse Marginal 1 (OM1), reverse saphenous vein graft to the Posterior Descending Artery (RPDA), Left Leg Endoscopic Vein [place] extubated after surgery crystalloid 3500cc/ 500cc cell saver, 1000cc EBL 08/12 not feeling well this am weaned off insulin gtt BP elevated , BB resumed gentle diuresis , PT/ OOB transfer to stepdown unit 08/13 chest tube removed without difficulty HGB 6.2/ for 2 units PRBC today , f/u labs in am 08/14 HGB 9.0/ s/p RBC yesterday continue diuresis pulm toileting No BM since surgery Objective: GENERAL: SKIN: Warm and dry. prevena dressing to chest , incision intact to leg HEAD: Normocephalic. EYES: No scleral icterus. No injection or drainage. NECK: Supple, trachea midline. No JVD or lymphadenopathy. CARDIOVASCULAR: Regular rate and rhythm without murmurs, gallops, or rubs. RESPIRATORY: Breath sounds equal bilaterally. No accessory muscle use. GASTROINTESTINAL: Abdomen soft, non-tender, nondistended. MUSCULOSKELETAL: No cyanosis, or edema. BACK: Nontender without obvious deformity. No CVA tenderness. Vital Signs Date Time Temp Pulse Resp B/P (MAP) Pulse Ox O2 Delivery O2 Flow Rate FiO2 08/14/17 11:21 98.6 76 18 155/73 (100) 92 08/14/17 07:58 97 Nasal Cannula 1.00 08/14/17 07:25 94 Nasal Cannula 2.00 08/14/17 07:25 97.9 76 18 111/57 (75) 94 08/14/17 06:03 70 08/14/17 05:05 70 08/14/17 04:00 70 08/14/17 03:30 92 Nasal Cannula 1.50 08/14/17 03:30 97.9 72 19 108/59 (75) 92 08/14/17 03:30 70 08/14/17 02:13 72 08/14/17 01:00 72 08/14/17 00:00 82 08/13/17 23:50 98.4 84 18 131/66 (87) 92 08/13/17 23:50 92 Nasal Cannula 2.00 08/13/17 23:00 83 08/13/17 22:00 86 08/13/17 21:30 92 1.00 08/13/17 21:00 82 08/13/17 20:00 82 08/13/17 19:55 92 Nasal Cannula 0.50 08/13/17 19:55 98.8 83 20 145/70 (95) 94 08/13/17 19:34 98.8 83 20 145/70 94 08/13/17 19:00 84 08/13/17 18:00 86 08/13/17 17:40 98.8 96 20 149/63 93 08/13/17 17:35 99.3 100 18 156/68 93 08/13/17 17:31 99.8 92 143/67 95 08/13/17 17:25 99.8 90 18 136/64 94 08/13/17 17:00 92 08/13/17 16:00 84 08/13/17 15:43 93 Nasal Cannula 2.00 08/13/17 15:00 99.3 87 18 132/64 (86) 92 08/13/17 15:00 86 08/13/17 14:15 132/64 08/13/17 14:00 88 138/61 93 08/13/17 14:00 86 08/13/17 13:45 146/67 94 08/13/17 13:30 88 136/58 96 Labs: Laboratory Tests Test 08/14/17 05:35 White Blood Count 9.2 TH/MM3 (4.0-11.0) Red Blood Count 2.97 MIL/MM3 (4.50-5.90) Hemoglobin 9.0 GM/DL (13.0-17.0) Hematocrit 25.6 % (39.0-51.0) Mean Corpuscular Volume 86.1 FL (80.0-100.0) Mean Corpuscular Hemoglobin 30.2 PG (27.0-34.0) Mean Corpuscular Hemoglobin Concent 35.1 % (32.0-36.0) Red Cell Distribution Width 14.2 % (11.6-17.2) Platelet Count 148 TH/MM3 (150-450) Mean Platelet Volume 9.3 FL (7.0-11.0) Blood Urea Nitrogen 18 MG/DL (7-18) Creatinine 1.32 MG/DL (0.60-1.30) Random Glucose 109 MG/DL (74-106) Calcium Level 8.0 MG/DL (8.5-10.1) Sodium Level 138 MEQ/L (136-145) Potassium Level 3.9 MEQ/L (3.5-5.1) Chloride Level 102 MEQ/L (98-107) Carbon Dioxide Level 29.5 MEQ/L (21.0-32.0) Anion Gap 7 MEQ/L (5-15) Estimat Glomerular Filtration Rate 56 ML/MIN (>89) Result Diagram: 08/14/1735 08/14/1735 (1) ACS (acute coronary syndrome) Plan: Mild TnI elevation seen. (2) ASHD (arteriosclerotic heart disease) (3) Hypertensive heart disease Plan: resume BB gentle diuresis (4) Multi-vessel coronary artery stenosis (5) S/P CABG x 3 Plan: ASA, statin , plavix , BB OOB ambulate pain control pulm toileting eval for dc in am (6) Prediabetes Plan: diabetic diet, insulin sliding scale dietary consult (7) Chronic kidney disease Plan: monitor indices (8) Blood loss anemia Plan: transfuse 2 units PRBC Problem Qualifiers (1) Chronic kidney disease: Qualified Codes: N18.2 - Chronic kidney disease, stage 2 (mild) Liset Byrnes Aug 14, 2017 13:24
[2017-08-14] MEDS ORDERED: POTA-163 PO (13:37)
[2017-08-14] MEDS ORDERED: FURO1TAB60 PO (13:37)
[2017-08-14] MEDS ORDERED: POLY17S PO (13:37)
[2017-08-14] MEDS ORDERED: DOCU1CAP39 PO (13:37)
[2017-08-14] MEDS ORDERED: METO25TA3 PO (13:37)
[2017-08-14] MEDS ORDERED: NORC5TAB PO (13:37)
--- NOTE | 2017-08-14 13:40 | PD.CAR.PN ---
CVT Progress Note Subjective/Hospital Course: 61/ male scheduled for CABG this week with Dr. Diaz on 08/12 2/2 being on plavix . Presented to the ED with rest chest pain and had a very slight troponin elevation. He is currently comfortable and pain free on heparin IV. he is patient of Dr. Virk, with known severe three-vessel coronary artery disease. He had recently had an abnormal stress test and underwent cardiac catheterization on August 08 revealing severe three-vessel coronary disease and he was referred for bypass surgery revascularization. [place] and began to get short of breath but had no chest pain. He said he could not sleep well the night before he came in , and then began having some left upper chest discomfort that lasted about 10 minutes radiating to his left shoulder and arm. It was dull and achy. He did not take any sublingual nitroglycerin since he did not feel it was bad enough. He did come to the emergency room for evaluation. His initial cardiac enzymes were negative then went to 0.08 . He is currently asymptomatic lying in bed. His initial EKG was unremarkable. PAST HISTORY 1. Coronary artery disease. 2. Hypertension. 08/10 pt now on nitro paste , ASA and heparin gtt he has now been scheduled for surgery in am currently pain free 08/11 surgery: 1. Off-pump Coronary Artery Bypass Grafting x 3 with Left Internal Mammary Artery (RICHTER) to the Left Anterior Descending (LAD), reverse saphenous vein graft to the Obtuse Marginal 1 (OM1), reverse saphenous vein graft to the Posterior Descending Artery (RPDA), Left Leg Endoscopic Vein [place] extubated after surgery crystalloid 3500cc/ 500cc cell saver, 1000cc EBL 08/12 not feeling well this am weaned off insulin gtt BP elevated , BB resumed gentle diuresis , PT/ OOB transfer to stepdown unit 08/13 chest tube removed without difficulty HGB 6.2/ for 2 units PRBC today , f/u labs in am 08/14 HGB 9.0/ s/p RBC yesterday continue diuresis pulm toileting No BM since surgery Objective: Vital Signs Date Time Temp Pulse Resp B/P (MAP) Pulse Ox O2 Delivery O2 Flow Rate FiO2 08/14/17 11:21 98.6 76 18 155/73 (100) 92 08/14/17 07:58 97 Nasal Cannula 1.00 08/14/17 07:25 94 Nasal Cannula 2.00 08/14/17 07:25 97.9 76 18 111/57 (75) 94 08/14/17 06:03 70 08/14/17 05:05 70 08/14/17 04:00 70 08/14/17 03:30 92 Nasal Cannula 1.50 08/14/17 03:30 97.9 72 19 108/59 (75) 92 08/14/17 03:30 70 08/14/17 02:13 72 08/14/17 01:00 72 08/14/17 00:00 82 08/13/17 23:50 98.4 84 18 131/66 (87) 92 08/13/17 23:50 92 Nasal Cannula 2.00 08/13/17 23:00 83 08/13/17 22:00 86 08/13/17 21:30 92 1.00 08/13/17 21:00 82 08/13/17 20:00 82 08/13/17 19:55 92 Nasal Cannula 0.50 08/13/17 19:55 98.8 83 20 145/70 (95) 94 08/13/17 19:34 98.8 83 20 145/70 94 08/13/17 19:00 84 08/13/17 18:00 86 08/13/17 17:40 98.8 96 20 149/63 93 08/13/17 17:35 99.3 100 18 156/68 93 08/13/17 17:31 99.8 92 143/67 95 08/13/17 17:25 99.8 90 18 136/64 94 08/13/17 17:00 92 08/13/17 16:00 84 08/13/17 15:43 93 Nasal Cannula 2.00 08/13/17 15:00 99.3 87 18 132/64 (86) 92 08/13/17 15:00 86 08/13/17 14:15 132/64 08/13/17 14:00 88 138/61 93 08/13/17 14:00 86 08/13/17 13:45 146/67 94 Labs: Laboratory Tests Test 08/14/17 05:35 White Blood Count 9.2 TH/MM3 (4.0-11.0) Red Blood Count 2.97 MIL/MM3 (4.50-5.90) Hemoglobin 9.0 GM/DL (13.0-17.0) Hematocrit 25.6 % (39.0-51.0) Mean Corpuscular Volume 86.1 FL (80.0-100.0) Mean Corpuscular Hemoglobin 30.2 PG (27.0-34.0) Mean Corpuscular Hemoglobin Concent 35.1 % (32.0-36.0) Red Cell Distribution Width 14.2 % (11.6-17.2) Platelet Count 148 TH/MM3 (150-450) Mean Platelet Volume 9.3 FL (7.0-11.0) Blood Urea Nitrogen 18 MG/DL (7-18) Creatinine 1.32 MG/DL (0.60-1.30) Random Glucose 109 MG/DL (74-106) Calcium Level 8.0 MG/DL (8.5-10.1) Sodium Level 138 MEQ/L (136-145) Potassium Level 3.9 MEQ/L (3.5-5.1) Chloride Level 102 MEQ/L (98-107) Carbon Dioxide Level 29.5 MEQ/L (21.0-32.0) Anion Gap 7 MEQ/L (5-15) Estimat Glomerular Filtration Rate 56 ML/MIN (>89) Result Diagram: 08/14/1753408/14/17534 (1) ACS (acute coronary syndrome) Plan: Mild TnI elevation seen. (2) ASHD (arteriosclerotic heart disease) (3) Hypertensive heart disease Plan: resume BB gentle diuresis (4) Multi-vessel coronary artery stenosis (5) S/P CABG x 3 Plan: ASA, statin , plavix , BB OOB ambulate pain control pulm toileting eval for dc in am (6) Prediabetes Plan: diabetic diet, insulin sliding scale dietary consult (7) Chronic kidney disease Plan: monitor indices (8) Blood loss anemia Plan: s/p transfusion 2 units PRBC Problem Qualifiers (1) Chronic kidney disease: Qualified Codes: N18.2 - Chronic kidney disease, stage 2 (mild) Liset Byrnes Aug 14, 2017 13:40
[2017-08-14] MEDS: RESP: ALBUTEROL 2.5 MG/IPRATROPIUM 0.5 MG NEB (PRN) NEB ×2 (13:45→20:00)
--- NOTE | 2017-08-14 13:45 | HHI.DS ---
Discharge Summary Admission Date Aug 10, 2017 at 13:06 Discharge Date: Aug 15, 2017 Admitting Diagnosis chest pain know cad (1) Multi-vessel coronary artery stenosis Diagnosis: Principal ICD Codes: I25.10 - Atherosclerotic heart disease of [place] coronary artery without angina pectoris (2) Hyperlipidemia Diagnosis: Principal ICD Codes: E78.5 - Hyperlipidemia, unspecified (3) Hypertension Diagnosis: Principal ICD Codes: I10 - Essential (primary) hypertension (4) S/P CABG x 3 Diagnosis: Secondary ICD Codes: Z95.1 - Presence of aortocoronary bypass graft (5) Blood loss anemia Diagnosis: Secondary ICD Codes: D50.0 - Iron deficiency anemia secondary to blood loss (chronic) (6) Chronic kidney disease Diagnosis: Principal ICD Codes: N18.9 - Chronic kidney disease, unspecified (7) Prediabetes ICD Codes: R73.03 - Prediabetes Procedures 1. Off-pump Coronary Artery Bypass Grafting x 3 with Left Internal Mammary Artery (RICHTER) to the Left Anterior Descending (LAD), reverse saphenous vein graft to the Obtuse Marginal 1 (OM1), reverse saphenous vein graft to the Posterior Descending Artery (RPDA) 2. Left Leg Endoscopic Vein [place] 08/11 CBC/BMP: 08/14/17 0535 08/14/17 0535 Significant Findings Laboratory Tests Test 08/12/17 04:25 08/13/17 04:11 08/14/17 05:35 White Blood Count 11.9 TH/MM3 (4.0-11.0) Red Blood Count 2.99 MIL/MM3 (4.50-5.90) 2.16 MIL/MM3 (4.50-5.90) 2.97 MIL/MM3 (4.50-5.90) Hemoglobin 8.8 GM/DL (13.0-17.0) 6.2 GM/DL (13.0-17.0) 9.0 GM/DL (13.0-17.0) Hematocrit 25.6 % (39.0-51.0) 18.4 % (39.0-51.0) 25.6 % (39.0-51.0) Random Glucose 147 MG/DL (74-106) 113 MG/DL (74-106) 109 MG/DL (74-106) Calcium Level 7.8 MG/DL (8.5-10.1) 7.9 MG/DL (8.5-10.1) 8.0 MG/DL (8.5-10.1) Chloride Level 108 MEQ/L (98-107) Estimat Glomerular Filtration Rate 57 ML/MIN (>89) 53 ML/MIN (>89) 56 ML/MIN (>89) Neutrophils (%) (Auto) 78.8 % (16.0-70.0) Monocytes (%) (Auto) 10.7 % (0.0-8.0) Neutrophils # (Auto) 8.7 TH/MM3 (1.8-7.7) Monocytes # (Auto) 1.2 TH/MM3 (0-0.9) Creatinine 1.37 MG/DL (0.60-1.30) 1.32 MG/DL (0.60-1.30) Platelet Count 148 TH/MM3 (150-450) Imaging 61/ male scheduled for CABG this week with Dr. Diaz on 08/12/ being on plavix . Presented to the ED with rest chest pain and had a very slight troponin elevation. He is currently comfortable and pain free on heparin IV. he is patient of Dr. Virk, with known severe three-vessel coronary artery disease. He had recently had an abnormal stress test and underwent cardiac catheterization on August 08 revealing severe three-vessel coronary disease and he was referred for bypass surgery revascularization. [place] and began to get short of breath but had no chest pain. He said he could not sleep well the night before he came in , and then began having some left upper chest discomfort that lasted about 10 minutes radiating to his left shoulder and arm. It was dull and achy. He did not take any sublingual nitroglycerin since he did not feel it was bad enough. He did come to the emergency room for evaluation. His initial cardiac enzymes were negative then went to 0.08 . He is currently asymptomatic lying in bed. His initial EKG was unremarkable. PAST HISTORY 1. Coronary artery disease. 2. Hypertension. PE at Discharge GENERAL: SKIN: Warm and dry. prevena dressing to chest , incision intact to leg HEAD: Normocephalic. EYES: No scleral icterus. No injection or drainage. NECK: Supple, trachea midline. No JVD or lymphadenopathy. CARDIOVASCULAR: Regular rate and rhythm without murmurs, gallops, or rubs. RESPIRATORY: Breath sounds equal bilaterally. No accessory muscle use. GASTROINTESTINAL: Abdomen soft, non-tender, nondistended. MUSCULOSKELETAL: No cyanosis, or edema. BACK: Nontender without obvious deformity. No CVA tenderness. Hospital Course 08/10 pt now on nitro paste , ASA and heparin gtt he has now been scheduled for surgery in am currently pain free 08/11 surgery: 1. Off-pump Coronary Artery Bypass Grafting x 3 with Left Internal Mammary Artery (RICHTER) to the Left Anterior Descending (LAD), reverse saphenous vein graft to the Obtuse Marginal 1 (OM1), reverse saphenous vein graft to the Posterior Descending Artery (RPDA), Left Leg Endoscopic Vein [place] extubated after surgery crystalloid 3500cc/ 500cc cell saver, 1000cc EBL 08/12 not feeling well this am weaned off insulin gtt BP elevated , BB resumed gentle diuresis , PT/ OOB transfer to stepdown unit 08/13 chest tube removed without difficulty HGB 6.2/ for 2 units PRBC today , f/u labs in am 08/14 doing well , HGB 9.0 continue gentle diuresis pulm toileting ambulate, eval for dc in am Pt Condition on Discharge: Good Discharge Disposition: Disch w/ Home Health Serv Discharge Instructions DIET: Follow Instructions for: Heart Healthy Diet, Diabetic Diet Activities you can perform: Full Weight Bearing, Shower Only-No Bath Activities to avoid: Strenuous Activity, Driving Additional Activity Instructio: no lifting > 8 lbs or gallon of milk Follow up Referrals: Cardiology with Ashish Virk MD PCP Follow-up - 2 Weeks with Rain Joseph M.d. Surgical - 2 Weeks with Ana Maria Diaz MD New Medications: Furosemide (Lasix) 40 Mg Tab 40 MG PO DAILY for edema , #7 TAB 1 Refill Hydrocodone-Acetaminophen ([place]) 5 Mg-325 Mg Tab 1 TAB PO Q6H PRN for PAIN, #40 TAB 0 Refills Potassium Chloride ER (Potassium Chloride ER) 20 Meq Tab 20 MEQ PO DAILY for Electrolyte Replacement, #7 TAB 1 Refill Docusate Sodium (Dok) 100 Mg Cap 100 MG PO BID for Constipation, #60 CAP 0 Refills Metoprolol Tartrate (Metoprolol Tartrate) 25 Mg Tab 25 MG PO BID for Blood Sugar Management, #60 TAB 2 Refills Polyethylene Glycol 3350 Powder (Polyethylene Glycol 3350 Powder) 17 Gram Pow 17 GM PO DAILY for Constipation, #30 PACKET 0 Refills Continued Medications: Amlodipine (Amlodipine) 10 Mg Tab 10 MG PO DAILY for Blood Pressure Management, #30 TAB [address] (Aspirin EC) 81 Mg Tabdr 81 MG PO DAILY, TAB 0 Refills Atorvastatin (Atorvastatin) 80 Mg Tab 80 MG PO HS for Cholesterol Management, #30 TAB 0 Refills Clopidogrel (Clopidogrel) 75 Mg Tab 75 MG PO DAILY for Blood Clot Prevention, #30 TAB 0 Refills Multiple Vitamin (Multiple Vitamin) 1 Tab 1 TAB PO DAILY for Nutritional Supplement, TAB 0 Refills Discontinued Medications: Isosorbide Mononitrate ER (Isosorbide Mononitrate ER) 30 Mg [place] 30 MG PO DAILY for Prevent Chest Pain, #30 TAB 0 Refills Lisinopril-Hctz (Lisinopril-Hctz) 20-25 Mg Tab 1 TAB PO DAILY for Blood Pressure Management, #30 TAB 0 Refills Metoprolol Tartrate (Metoprolol Tartrate) 100 Mg Tab 100 MG PO DAILY, #30 TAB 0 Refills Nitroglycerin SL (Nitroglycerin SL) 0.4 Mg Subl 0.4 MG SL DIRECTED PRN for CHEST PAIN, #100 TAB.SL 0 Refills ONE TABLET UNDER THE TONGUE NEEDED FOR CHEST PAIN, MAY REPEAT EVERY FIVE MINUTES FOR A TOTAL OF 3 DOSES OR CALL 911 IF NO RELIEF Liset Byrnes Aug 14, 2017 13:45
[2017-08-14] MEDS ORDERED: BISACODYL 10 MG SUPP RECTAL ONE (14:00)
[2017-08-14] MEDS ORDERED: SOD PHOSPHATE/SOD BIPHOSPHATE (ADULT) ENEMA 133ML PR ONE (14:00)
[2017-08-14] MEDS ORDERED: POTASSIUM CHLORIDE 20 MEQ CONTROLLED RELEASE TAB PO ONE (14:00)
[2017-08-14] MEDS: ATORVASTATIN 80 MG TAB PO SCH (20:31)
[2017-08-14] MEDS: SENNOSIDES 8.6 MG TAB PO SCH (20:31)
[2017-08-15] VITALS (15 sets, daily range): BP systolic 121–126; BP diastolic 58–62; PULSE 66–76; RESP 17–20; TEMP 98.1–98.4; O2SAT 91–96
[2017-08-15] MEDS: PANTOPRAZOLE SOD 40 MG DELAYED RELEASE TAB PO SCH (05:49)
[2017-08-15 05:58] LABS: HEMATOCRIT 25.7 % (39.0-51.0); MEAN CELL VOLUME 86.1 FL (80.0-100.0); MEAN CORPUSCULAR HEMOGLOBIN 29.4 PG (27.0-34.0); MEAN CORPUSCULAR HGB CONC 34.2 % (32.0-36.0); PLATELET COUNT 184 TH/MM3 (150-450); RED BLOOD COUNT 2.99 MIL/MM3 (4.50-5.90); RED CELL DISTRIBUTION WIDTH 14.5 % (11.6-17.2); REVIEW FLAG FINAL; WHITE BLOOD COUNT 8.4 TH/MM3 (4.0-11.0)
[2017-08-15 06:20] LABS: POTASSIUM 3.9 MEQ/L (3.5-5.1)
[2017-08-15] MEDS: INSULIN ASPART SUPPLEMENTAL SCALE SQ SCH (08:00)
[2017-08-15] MEDS: POLYETHYLENE GLYCOL 17 GM PKG PO SCH (08:28)
[2017-08-15] MEDS: MAGNESIUM HYDROXIDE SUSP 30 ML CUP PO SCH (08:28)
[2017-08-15] MEDS: METOPROLOL TARTRATE 25 MG TAB PO SCH (08:30)
[2017-08-15] MEDS: DOCUSATE SODIUM 100 MG CAP PO SCH (08:30)
[2017-08-15] MEDS: AMIODARONE 200 MG TAB PO SCH (08:30)
[2017-08-15] MEDS: CLOPIDOGREL 75 MG TAB PO SCH (08:30)
[2017-08-15] MEDS: MULTIVITAMINS/MINERALS THERAPEUTIC TAB PO SCH (08:30)
[2017-08-15] MEDS: ASPIRIN 81 MG CHEW TAB PO SCH (08:30)
[2017-08-15] MEDS: SODIUM CHLORIDE 0.9% FLUSH 10 ML FLUSH IV FLUSH SCH (08:31)
[2017-08-15] MEDS: MULTIVITAMIN TAB PO SCH (08:31)
== END 2017-08-15 12:13 | disposition home health service (06) | DRG 236 ==
LOC: NEPE 03:25 → NEDA 06:27 → HCPC 10:01 → OBSVTOIN 08-10 13:06 → HCPC 08-11 08:20 → HCVI 08-11 13:51 → HCPC 08-12 09:36
PROVIDERS: ADMIT Hospitalist; ATTEND Thoracic Surgery (Cardiothoracic Vascular Surgery)
PROC: 06BQ4ZZ Excision of Left Saphenous Vein, Percutaneous Endoscopic Approach (ICD-10-PCS; 2017-08-11)
PROC: 02100Z9 Bypass Coronary Artery, One Artery from Left Internal Mammary, Open Approach (ICD-10-PCS; principal; 2017-08-11 08:23)
PROC: 021109W Bypass Coronary Artery, Two Arteries from Aorta with Autologous Venous Tissue, Open Approach (ICD-10-PCS; 2017-08-11 08:23)
PROC: 30233N1 Transfusion of Nonautologous Red Blood Cells into Peripheral Vein, Percutaneous Approach (ICD-10-PCS; 2017-08-13)
DX: I25.110 Atherosclerotic heart disease of native coronary artery with unstable angina pectoris (principal); I13.10 Hypertensive heart and chronic kidney disease without heart failure, with stage 1 through stage 4 chronic kidney disease, or unspecified chronic kidney disease; E78.5 Hyperlipidemia, unspecified; I25.5 Ischemic cardiomyopathy; E66.9 Obesity, unspecified; Z68.29 Body mass index [BMI] 29.0-29.9, adult; I25.2 Old myocardial infarction; N18.2 Chronic kidney disease, stage 2 (mild); D50.0 Iron deficiency anemia secondary to blood loss (chronic); R73.03 Prediabetes; Z88.0 Allergy status to penicillin; Z88.2 Allergy status to sulfonamides
CPT/HCPCS: 36430; 71010; 76937; 80048; 80053; 82550; 82552; 82948; 83735; 84100; 84484; 85025; 85027; 85576; 85610; 85730; 86850; 86900; 86901; 86920; 93005; 94002; 94150; 94640; 94664; 94667; 94668; 96372; C1768; G0378; J0131; J0171; J1644; J1815; J1817; J1940; J2250; J2260; J2270; J2370; J2440; J2720; J3010; J3370; J3475; J3480; J7040; J7050; J7120; P9016; P9045; Q0163